=== PATIENT | female | born 1955 | race Hispanic/Latino ===

== ENCOUNTER 2020-02-21 11:19 | Inpatient (IN) | payer MEDICARE ==
[~2020-02-21] VITALS: Ht 152.4 cm; Wt 96.8 kg
[~2020-02-21 11:19] MED LIST: ALLO300T2 PO; AMLO10TA4 PO; AMOX1TAB16 PO; ASPI-1012 PO; ATOR10 PO; BACL10TA PO; BUDE10.2 IH; CARV6.25 PO; CILO100T PO; CLIN300C9 PO; ESOM40CA PO; FERS325 PO; FURO40TA5 PO; FURO40TA7 PO; HYDR-3422 PO; INSU100V12 SQ; IPRAHFA IH; ISOS20TA7 PO; LISI30TA4 PO; LORA1TAB3 PO; MONT10TA26 PO; NITR0.4T SL; OLAN5TAB40 PO; OMEP20CA12 PO; POTA10CA44 PO; PREG50 PO; SERT50TA12 PO; insulin
[2020-02-21 11:49] LABS: EOSINOPHILS % (AUTO) 3.5 % (0.0-8.0); HEMATOCRIT 35.9 % (36-48); LYMPHOCYTES % (AUTO) 13.8 % (21.0-51.0); MEAN CORPUSCULAR HGB CONC 29.5 g/dL (32.0-36.0); MEAN CORPUSCULAR VOLUME 91.6 fL (79-99); MONOCYTES % (AUTO) 6.8 % (3.0-13.0); NEUTROPHILS % (AUTO) 72.3 % (40.0-77.0); PLATELET COUNT (AUTO) 187 K/uL (130-400); RED BLOOD CELL COUNT(AUTO) 3.92 MIL/uL (4.00-5.50); RED CELL DISTRIBUTION WIDTH 12.5 % (11.0-15.5); WHITE BLOOD COUNT (AUTO) 9.5 K/uL (4.8-10.8)
[2020-02-21 12:05] LABS: CREATININE 2.1 mg/dL (0.5-1.5); POTASSIUM 4.8 mmol/L (3.5-5.1)
[2020-02-21 12:09] LABS: ALBUMIN 3.1 g/dL (3.5-5.0); BILIRUBIN,TOTAL 0.3 mg/dL (0.2-1.0); TOTAL PROTEIN, SERUM 7.1 g/dL (6.0-8.3)
[2020-02-21 13:40] LABS: INR 0.97 (0.85-1.15); PARTIAL THROMBOPLASTIN TIME 26.3 SEC (26.3-35.5); PROTHROMBIN TIME 10.5 SEC (9.6-11.6)
[2020-02-21] MEDS ORDERED: SODIUM CHLORIDE 0.9% 1000ML 1,000 ML IV ONE (14:04)
[2020-02-21 14:30] LABS: APPEARANCE,URINE Clear (CLEAR); BILIRUBIN,URINE Negative (NEGATIVE); COLOR,URINE Yellow (YELLOW); GLUCOSE, URINE (UA) Negative (NEGATIVE); KETONES,URINE Negative (NEGATIVE); LEUKOCYTE ESTERASE ,URINE Small (NEGATIVE); NITRATE,URINE Negative (NEGATIVE); OCCULT BLOOD,URINE Negative (NEGATIVE); PROTEIN,URINE Negative (NEGATIVE)
[2020-02-21 14:37] LABS: AMPHET/METH SCREEN,URINE NEGATIVE (NEGATIVE); BARBITURATE SCREEN, URINE NEGATIVE (NEGATIVE); BENZODIAZEPINES SCREEN,URINE NEGATIVE (NEGATIVE); CANNABINOID SCREEN,URINE NEGATIVE (NEGATIVE); COCAINE SCREEN,URINE NEGATIVE (NEGATIVE); OPIATE SCREEN,URINE NEGATIVE (NEGATIVE); PHENCYCLIDINE SCREEN,URINE NEGATIVE (NEGATIVE)
[2020-02-21] MEDS ORDERED: DEXTROSE 50%-WATER 50 ML DISP.SYRIN IV PRN (14:45)
[2020-02-21] MEDS: SODIUM CHLORIDE 0.9% 1000ML 1,000 ML IV SCH (14:45)
[2020-02-21] MEDS ORDERED: GLUCAGON 1MG KIT 1 MG ML IM PRN (14:45)
[2020-02-21 15:12] LABS: RBC,URINE 0-1 /HPF (0-1)
[2020-02-21 15:13] LABS: BACTERIA,URINE Rare /HPF (None Seen); SQUAMOUS EPITHELIAL CELL,UR Rare /HPF (0-2)
[2020-02-21] MEDS: INSULIN R PO SS1 SQ SCH ×2 (16:30→20:45)
[2020-02-21 19:49] VITALS: BP 109/70
[2020-02-22] VITALS (9 sets, daily range): BP systolic 85–136; BP diastolic 48–113
[2020-02-22] MEDS ORDERED: ESCI10TA54 PO (00:18)
[2020-02-22] MEDS ORDERED: ISOS30TA6 PO (00:18)
[2020-02-22] MEDS ORDERED: LEVO500T89 PO (00:18)
[2020-02-22 05:44] LABS: CREATININE 1.9 mg/dL (0.5-1.5); POTASSIUM 4.5 mmol/L (3.5-5.1)
[2020-02-22 05:48] LABS: HEMATOCRIT 35.5 % (36-48); MEAN CORPUSCULAR HEMOGLOBIN 27.3 pg (27.0-33.0); MEAN CORPUSCULAR HGB CONC 29.6 g/dL (32.0-36.0); MEAN CORPUSCULAR VOLUME 92.2 fL (79-99); RED BLOOD CELL COUNT(AUTO) 3.85 MIL/uL (4.00-5.50); RED CELL DISTRIBUTION WIDTH 12.4 % (11.0-15.5); WHITE BLOOD COUNT (AUTO) 9.7 K/uL (4.8-10.8)
[2020-02-22] MEDS: INSULIN R PO SS1 SQ SCH ×4 (06:12→20:42)
[2020-02-22] MEDS: SODIUM CHLORIDE 0.9% 1000ML 1,000 ML IV SCH ×2 (10:32→20:42)
[2020-02-22] MEDS: IPRATROPIUM/ALBUTEROL SULFATE 3 ML SOLUTION IH SCH ×3 (11:15→23:37)
[2020-02-22] MEDS ORDERED: IPRATROPIUM 0.5 MG/2.5 ML INH IH SCH (14:00)
[2020-02-22] MEDS: BUDESONIDE 0.5 MG/2 ML INH IH SCH (18:32)
[2020-02-22] MEDS: ATORVASTATIN CALCIUM 10 MG TABLET PO SCH (20:41)
[2020-02-22] MEDS: CARVEDILOL 6.25 MG TABLET PO SCH (20:42)
[2020-02-22] MEDS ORDERED: SUB PER P&T FOR ASTHMA OR COPD RECOMMENDATION IH SCH (21:00)
--- NOTE | 2020-02-22 21:15 | NUR ---
TELEPHONE CONSENT PATIENT HAS ORDER FOR EGD WITH PEG TUBE PLACEMENT TOMORROW. ATTEMPTED TO OBTAIN TELEPHONE CONSENT FROM DAUGHTER, ERIC YATES AT THIS TIME, NO ANSWER. WILL CALL AGAIN IN THE MORNING. Addendum: 02/22/20 at 2300 by JER BECKHAM RN RN DOCUMENTED ON WRONG PATIENT
--- NOTE | 2020-02-22 21:20 | NUR ---
TELEPHONE CONSENT OBTAINED RECEIVED CALL BACK FROM PATIENT'S DAUGHTER, ERIC YATES. CONSENT FOR EGD-PEG WITH MAC OBTAINED. Addendum: 02/22/20 at 2301 by JER BECKHAM RN RN DOCUMENTED ON WRONG PATIENT
--- NOTE | 2020-02-22 23:50 | NUR ---
PAGED MD DR. LONG WAS PAGED REGARDING PATIENT'S LOW O2 SATS. PENDING CALL BACK.
--- NOTE | 2020-02-23 00:14 | NUR ---
CALL BACK FROM DR. LONG RECEIVED CALL BACK FROM DR. LONG AND NOTIFIED HIM OF PATIENT'S DECREASE IN O2 SATS. PER MD CONTINUE WITH OXYGEN THERAPY AND DUONEB TREATMENTS. NO NEW ORDERS WERE GIVEN.
[2020-02-23 04:00] VITALS: BP 157/69
[2020-02-23 05:36] LABS: HEMATOCRIT 36.9 % (36-48); MEAN CORPUSCULAR HEMOGLOBIN 26.5 pg (27.0-33.0); MEAN CORPUSCULAR HGB CONC 29.3 g/dL (32.0-36.0); MEAN CORPUSCULAR VOLUME 90.7 fL (79-99); PLATELET COUNT (AUTO) 195 K/uL (130-400); RED BLOOD CELL COUNT(AUTO) 4.07 MIL/uL (4.00-5.50); RED CELL DISTRIBUTION WIDTH 12.6 % (11.0-15.5); WHITE BLOOD COUNT (AUTO) 10.3 K/uL (4.8-10.8)
[2020-02-23 05:55] LABS: CREATININE 1.5 mg/dL (0.5-1.5); PHOSPHORUS 2.4 mg/dL (2.5-4.9); POTASSIUM 4.2 mmol/L (3.5-5.1)
[2020-02-23] MEDS: SODIUM CHLORIDE 0.9% 1000ML 1,000 ML IV SCH (06:00)
[2020-02-23 06:19] LABS: BAND NEUTROPHILS % (MANUAL) 5 % (0-2); BASOPHILS % (MANUAL) 1 % (0-2); EOSINOPHILS % (MANUAL) 5 % (1-6); LYMPHOCYTES % (MANUAL) 11 % (22-44); MAN.DIFF COMMENT-IMPRESSION MANUAL DIFFERENTIAL; MONOCYTES % (MANUAL) 9 % (2-9); REACTIVE LYMPHOCYTES 2 % (0-0); SEGMENTED NEUTROPHILS % 67 % (40-70)
[2020-02-23 06:20] LABS: PLATELET MORPHOLOGY COMMENT ADEQUATE
[2020-02-23] MEDS: IPRATROPIUM/ALBUTEROL SULFATE 3 ML SOLUTION IH SCH ×3 (06:47→18:28)
[2020-02-23] MEDS: BUDESONIDE 0.5 MG/2 ML INH IH SCH ×2 (06:47→18:28)
[2020-02-23 07:00] VITALS: BP 133/81
[2020-02-23] MEDS: INSULIN R PO SS1 SQ SCH ×4 (07:21→20:35)
[2020-02-23] MEDS ORDERED: FUROSEMIDE 10 MG/ML 4ML VIAL IV SCH (07:45)
[2020-02-23 07:54] LABS: ABG BASE EXCESS 0.6 mmol/L (-2.0-3.0); ABG HCO3 29.6 mmol/L (21.0-28.0); ABG OXYGEN SATURATION 71.1 % (95.0-99.0); ABG PCO2 68 mmHg (32-45)
[2020-02-23 08:06] LABS: ABG BASE EXCESS 0.3 mmol/L (-2.0-3.0); ABG HCO3 29.3 mmol/L (21.0-28.0); ABG OXYGEN SATURATION 68.6 % (95.0-99.0); ABG PCO2 67 mmHg (32-45)
[2020-02-23] MEDS: CARVEDILOL 6.25 MG TABLET PO SCH ×2 (08:17→20:35)
[2020-02-23] MEDS: ASPIRIN 325 MG TABLET PO SCH (08:17)
[2020-02-23] MEDS: PANTOPRAZOLE SODIUM 40 MG TABLET.DR PO SCH (08:17)
[2020-02-23] MEDS ORDERED: NON-FORMULARY MEDICATION 1 EACH (Lisinopril 30 MG) PO SCH (09:00)
[2020-02-23] MEDS ORDERED: ISOSORBIDE MONO 30MG TAB SR PO SCH (09:00)
[2020-02-23] MEDS: FUROSEMIDE 10 MG/ML 4ML VIAL IV SCH ×2 (09:30→20:35)
--- NOTE | 2020-02-23 10:40 | NUR ---
Responded to audible BiPAP alarm. Pt was off the bipap upon entering room. Pt removed mask on her own. RA SpO2 65% HR 70's RR 30s, Respirations labored. Bipap immediately placed back on pt w/FiO2 @ 1.0 to rapidly increase sats. Pt was encouraged to not remove mask as she would be w/o oxygen. FiO2 weaned to .50 before leaving room; SpO2 91%. Pauline RN made aware.
[2020-02-23 11:00] VITALS: BP 128/79
--- NOTE | 2020-02-23 12:01 | NUR ---
PAGED DR. BLOUNT FOR SURGICAL CONSULT. DR. BLOUNT SAID UNABLE TO DO D/T FULL CLINIC TODAY AND UNABLE TO SEE.
--- NOTE | 2020-02-23 15:24 | NUR ---
INITIAL ASSESSMENT DONE- CALL TO DAUGHTER KAROL ZAMAN, PROVIDER FOR PATIENT 6 HR/DAY. GRANDDAUGHTER GERARDO STAYS/LIVES WITH PATIENT, BUT DOES NOT WORK FOR PATIENT. PATIENT HAS LIFT, WHEEL CHAIR, NEBULIZER, HOSP BED AND HOME OXYGEN. PATIENT GOES BY EMS TO ALL APPOINTMENTS, WILL NEED EMS ON DISCHARGE. WILL FLAG CHART, DCP IS HOME WITH SAME SERVICES Addendum: 02/23/20 at 1526 by DIANE RODRIGUES RN CM Amended: Links added.
--- NOTE | 2020-02-23 15:27 | NUR ---
WILL NEED EMS ON DISCHARGE HOME EVERARDO TO COORDINATE W WHEN DISCHARGE EXPECTED Addendum: 02/23/20 at 1527 by DIANE RODRIGUES RN CM Amended: Links added.
--- NOTE | 2020-02-23 16:12 | NUR ---
1608 BPCI Letter given to patient.
[2020-02-23 16:53] VITALS: BP 147/70
[2020-02-23] MEDS ORDERED: BUDESONIDE 0.5 MG/2 ML INH IH ONE (18:24)
[2020-02-23] MEDS ORDERED: IPRATROPIUM/ALBUTEROL SULFATE 3 ML SOLUTION IH ONE (18:24)
[2020-02-23 19:00] VITALS: BP 135/74
--- NOTE | 2020-02-23 19:00 | NUR ---
NURSES REPORT RECEIVED FROM AM NURSE MARY, NURSES ROUNDS DONE. PT NOTED TO BE HAVING SOB EVEN ON THE BIPAP. O2 SAT=90-94 % AT THIS TIME. KEPT HOB ELEVATED. WILL MONITOR CLOSELY. CALL LIGHT WITHIN REACH. Addendum: 02/23/20 at 2101 by NATACHA HOGUE RN RN Amended: Links added.
[2020-02-23] MEDS: ATORVASTATIN CALCIUM 10 MG TABLET PO SCH (20:35)
--- NOTE | 2020-02-23 20:35 | NUR ---
MEDS SHIFT ASSESSMENT DONE, PLEASE REFER TO CHART. RE-POSITIONED IN BED WITH HOB ELEVATED. DUE MEDS ADMINISTERED, TOLERATED WELL. CALL LIGHT WITHIN REACH. WILL MONITOR PT. Addendum: 02/23/20 at 2110 by NATACHA HOGUE RN RN Amended: Links added.
--- NOTE | 2020-02-23 21:56 | NUR ---
CX RESULTS PAGED DR ETHAN MD CREDIT COLLECTIONS SPECIALIST FOR THE NIGHT, VIA ANSWERING SERVICE, TO REFER + CX RESULTS. CALLED BACK AND REFERRED CX RESULTS. STATED THAT HE IS NOT FAMILIAR WITH THE PT'S CASE AND LONG THE PT IS NOT CRASHING OR HAVING FEVER, NURSE IS TO REFER RESULTS TO DR CODY JOHNSON ON AM ROUNDS.
[2020-02-23 23:00] VITALS: BP 154/71
--- NOTE | 2020-02-24 02:00 | NUR ---
CHANGED BANKING SERVICES CLERK AND PCP IN AND CHANGED PT'S DIAPER AND WET LINEN. NOTED PT DESATS VERY FAST TO THE 80'S IF BIPAP IS DISCONNECTED. RE-POSITIONED COMFORTABLY IN BED WITH HOB ELEVATED. CALL LIGHT WITHIN REACH. WILL MONITOR CLOSELY.
[2020-02-24 03:00] VITALS: BP 142/61
--- NOTE | 2020-02-24 04:55 | NUR ---
DESATS PT STILL DESATURATE ONCE BIPAP IS TAKEN OFF. SLEPT AT INTERVALS. KEPT COMFORTABLE WITH HOB ELEVATED. FOR MORE CARE.
[2020-02-24 05:22] LABS: BASOPHILS % (AUTO) 0.6 % (0.0-5.0); EOSINOPHILS % (AUTO) 1.8 % (0.0-8.0); HEMATOCRIT 35.3 % (36-48); MEAN CORPUSCULAR HEMOGLOBIN 27.3 pg (27.0-33.0); MEAN CORPUSCULAR HGB CONC 31.2 g/dL (32.0-36.0); MEAN CORPUSCULAR VOLUME 87.6 fL (79-99); MONOCYTES % (AUTO) 7.5 % (3.0-13.0); NEUTROPHILS % (AUTO) 76.1 % (40.0-77.0); PLATELET COUNT (AUTO) 178 K/uL (130-400); RED BLOOD CELL COUNT(AUTO) 4.03 MIL/uL (4.00-5.50); RED CELL DISTRIBUTION WIDTH 12.7 % (11.0-15.5); WHITE BLOOD COUNT (AUTO) 12.5 K/uL (4.8-10.8)
[2020-02-24 05:29] LABS: CREATININE 1.3 mg/dL (0.5-1.5); PHOSPHORUS 2.5 mg/dL (2.5-4.9); POTASSIUM 3.7 mmol/L (3.5-5.1)
[2020-02-24] MEDS: INSULIN R PO SS1 SQ SCH ×4 (06:06→21:00)
[2020-02-24] MEDS: PANTOPRAZOLE SODIUM 40 MG TABLET.DR PO SCH (06:14)
[2020-02-24] MEDS ORDERED: IPRATROPIUM/ALBUTEROL SULFATE 3 ML SOLUTION IH ONE ×2 (06:41→11:05)
[2020-02-24] MEDS ORDERED: BUDESONIDE 0.5 MG/2 ML INH IH ONE (06:41)
[2020-02-24] MEDS: IPRATROPIUM/ALBUTEROL SULFATE 3 ML SOLUTION IH SCH ×5 (06:43→23:27)
[2020-02-24] MEDS: BUDESONIDE 0.5 MG/2 ML INH IH SCH ×2 (06:55→18:18)
[2020-02-24 07:20] VITALS: BP 136/65
[2020-02-24] MEDS: ASPIRIN 325 MG TABLET PO SCH (09:31)
[2020-02-24] MEDS: FUROSEMIDE 10 MG/ML 4ML VIAL IV SCH ×2 (09:32→21:12)
[2020-02-24] MEDS: CARVEDILOL 6.25 MG TABLET PO SCH ×2 (09:32→21:14)
[2020-02-24 10:30] VITALS: BP 143/69
[2020-02-24] MEDS: AMPICILLIN 1GM+NS 50ML 50 ML IV SCH ×2 (12:00→14:05)
[2020-02-24] MEDS ORDERED: PHARMACY COMMUNICATION MISC SCH (13:00)
[2020-02-24 15:07] VITALS: BP 136/69
--- NOTE | 2020-02-24 15:50 | NUR ---
REFUSED BLOOD SUGAR CHECK AND REFUSED TO HAVE CONTINUOUS PULSE OXIMETRY IN PLACE. EXPLAINED RATIONALE,COMPLICATIONS, RISKS AND EVEN ASSOCIATED WITH NONCOMPLIANCE. PATIENT REFUSED. PT REFUSED TO SIGN REFUSAL OF TREATMENT. CHEL GUERRA AND RADU MILLIGAN PRESENT. SIGNED REFUSAL OF TREATMENT WITH WITNESS D/T PT REFUSING TO SIGN.
[2020-02-24] MEDS: ATORVASTATIN CALCIUM 10 MG TABLET PO SCH (21:12)
[2020-02-24 21:24] VITALS: BP 143/72
[2020-02-25 00:06] VITALS: BP_SYST 114; BP_DIAS 51; BP_DIAS 57
[2020-02-25] MEDS: AMPICILLIN 1GM+NS 50ML 50 ML IV SCH ×4 (00:35→18:28)
[2020-02-25] MEDS: INSULIN R PO SS1 SQ SCH ×4 (05:32→22:53)
[2020-02-25] MEDS: PANTOPRAZOLE SODIUM 40 MG TABLET.DR PO SCH ×2 (05:55→08:28)
[2020-02-25 06:07] VITALS: BP 143/62
[2020-02-25] MEDS: BUDESONIDE 0.5 MG/2 ML INH IH SCH (06:39)
[2020-02-25] MEDS: IPRATROPIUM/ALBUTEROL SULFATE 3 ML SOLUTION IH SCH ×3 (06:39→18:00)
--- NOTE | 2020-02-25 06:54 | NUR ---
pt on BiPap HS and throughout the day. As per Nurse pt will come off Bipap for meals. Addendum: 02/25/20 at 0656 by LEYLA AG RT Amended: Links added.
[2020-02-25 07:24] VITALS: BP 123/60
[2020-02-25] MEDS: ASPIRIN 325 MG TABLET PO SCH (08:28)
[2020-02-25] MEDS: CARVEDILOL 6.25 MG TABLET PO SCH ×2 (08:29→21:25)
[2020-02-25] MEDS: FUROSEMIDE 10 MG/ML 4ML VIAL IV SCH ×2 (08:29→21:24)
[2020-02-25] MEDS: LACTULOSE 20 GM/30 ML UDCUP PO PRN ×2 (09:29→16:28)
[2020-02-25 10:28] VITALS: BP 150/85
[2020-02-25 12:47] LABS: ABG BASE EXCESS 7.2 mmol/L (-2.0-3.0); ABG HCO3 35.3 mmol/L (21.0-28.0); ABG OXYGEN SATURATION 92.9 % (95.0-99.0); ABG PCO2 70 mmHg (32-45)
[2020-02-25 15:30] VITALS: BP 142/64
[2020-02-25 16:26] LABS: BASOPHILS % (AUTO) 0.4 % (0.0-5.0); EOSINOPHILS % (AUTO) 3.3 % (0.0-8.0); HEMATOCRIT 33.9 % (36-48); LYMPHOCYTES % (AUTO) 14.3 % (21.0-51.0); MEAN CORPUSCULAR HEMOGLOBIN 27.3 pg (27.0-33.0); MEAN CORPUSCULAR HGB CONC 30.7 g/dL (32.0-36.0); MONOCYTES % (AUTO) 8.2 % (3.0-13.0); NEUTROPHILS % (AUTO) 72.9 % (40.0-77.0); PLATELET COUNT (AUTO) 181 K/uL (130-400); RED BLOOD CELL COUNT(AUTO) 3.81 MIL/uL (4.00-5.50); WHITE BLOOD COUNT (AUTO) 10.8 K/uL (4.8-10.8)
[2020-02-25 17:06] LABS: CRP QUANTITATIVE 218.1 mg/L (0.00-9.0)
[2020-02-25] MEDS: BUDESONIDE 0.25 MG/2 ML INH IH SCH (18:00)
[2020-02-25] MEDS ORDERED: SODIUM CHLORIDE 0.9% 250 ML IV ONE (18:34)
[2020-02-25] MEDS ORDERED: PHARMACY COMMUNICATION MISC SCH (19:00)
[2020-02-25 20:00] VITALS: BP 149/71
[2020-02-25] MEDS: METHYLPREDNISOLONE SOD SUCC 125MG/2ML VIAL IVP SCH (21:24)
[2020-02-25] MEDS: ATORVASTATIN CALCIUM 10 MG TABLET PO SCH (21:24)
[2020-02-26] VITALS (7 sets, daily range): BP systolic 135–155; BP diastolic 69–114
[2020-02-26] MEDS ORDERED: IPRATROPIUM 0.5 MG/2.5 ML INH IH SCH
[2020-02-26] MEDS ORDERED: ALBUTEROL INHALER 90MCG/INH IH SCH
--- NOTE | 2020-02-26 | NUR ---
PT IS COVID NEGATIVE. VAN DRIVER HELPER AWARE. HIGH FLOW AT 80%. BASELINE O2 IS 84-89%. STATES SHE FEELS FINE, ONLY MINIMAL SOB WHEN SHE MOVES TOO FAST. BM NOTED. LARGE.
[2020-02-26] MEDS: AMPICILLIN 1GM+NS 50ML 50 ML IV SCH ×5 (02:26→23:43)
[2020-02-26] MEDS: INSULIN R PO SS1 SQ SCH ×4 (06:26→20:54)
[2020-02-26] MEDS: IPRATROPIUM 0.5 MG/2.5 ML INH IH SCH ×4 (06:55→23:53)
[2020-02-26] MEDS: BUDESONIDE 0.25 MG/2 ML INH IH SCH ×2 (06:55→19:48)
[2020-02-26] MEDS: ASPIRIN 325 MG TABLET PO SCH (07:54)
[2020-02-26] MEDS: METHYLPREDNISOLONE SOD SUCC 125MG/2ML VIAL IVP SCH (07:54)
[2020-02-26] MEDS: CARVEDILOL 6.25 MG TABLET PO SCH ×2 (07:55→20:41)
[2020-02-26] MEDS: FUROSEMIDE 10 MG/ML 4ML VIAL IV SCH ×2 (07:59→20:41)
--- NOTE | 2020-02-26 08:38 | NUR ---
DR. JOHNSON IS MAKING HIS ROUNDS. INFORMED MD OF NEGATIVE COVID TEST. PER MD, WE WILL WAIT ON PULMO RECOMMENDATIONS.
[2020-02-26] MEDS ORDERED: LEVOFLOXACIN 750 MG/D5W 150 ML 150 ML IV SCH (10:45)
[2020-02-26] MEDS: LEVOFLOXACIN 750 MG/D5W 150 ML 150 ML IV SCH (11:34)
[2020-02-26] MEDS ORDERED: DOXYCYCLINE 100MG+NS 250ML 250 ML IV SCH (15:30)
[2020-02-26] MEDS: DOXYCYCLINE HYCLATE 100 MG TABLET PO SCH (16:38)
--- NOTE | 2020-02-26 19:50 | NUR ---
PM Assessment Received pt sleepy on high flow O2 at 50% as reported by Raman ARREDONDO, on continuous O2 sat monitoring currently reading at 87-89%, pt denies SOB, pain, requested to have a sip of water. Pt head attempt to prop on a pillow as noted she sleep with head hyperextended agreed for few minutes & noted to take off the extra pillow. Explained the importance of good head position in terms of breathing, pt stated she is comfortable the was she sleeps.
[2020-02-26] MEDS: ATORVASTATIN CALCIUM 10 MG TABLET PO SCH (20:40)
[2020-02-26] MEDS: METHYLPREDNISOLONE SOD SUCC 40MG/ML 1ML IVP SCH (20:41)
--- NOTE | 2020-02-26 21:00 | NUR ---
Re: O2 sat reading 84-86 Rt Raman made aware of O2 sat reading, stated that he already had noted it & had increased O2 back to 60%. Per Raman he is trying to see if he can taper down the O2, will continue to monitor.
--- NOTE | 2020-02-27 01:00 | NUR ---
Re: continuous on/off desaturation Per Raman RT pt will be better off to be place on BIPAP as we have a PRN order, applied at 14/7 rate 16 at 45%, O2 sat noted up to 90-94%.
[2020-02-27 04:00] VITALS: BP 133/70
[2020-02-27] MEDS: DOXYCYCLINE HYCLATE 100 MG TABLET PO SCH ×2 (04:09→17:01)
[2020-02-27 04:44] LABS: HEMATOCRIT 32.7 % (36-48); MEAN CORPUSCULAR HEMOGLOBIN 27.3 pg (27.0-33.0); MEAN CORPUSCULAR HGB CONC 31.8 g/dL (32.0-36.0); MEAN CORPUSCULAR VOLUME 85.8 fL (79-99); RED BLOOD CELL COUNT(AUTO) 3.81 MIL/uL (4.00-5.50); RED CELL DISTRIBUTION WIDTH 12.4 % (11.0-15.5); WHITE BLOOD COUNT (AUTO) 4.5 K/uL (4.8-10.8)
[2020-02-27 04:56] LABS: CREATININE 1.3 mg/dL (0.5-1.5); POTASSIUM 3.6 mmol/L (3.5-5.1)
[2020-02-27] MEDS: AMPICILLIN 1GM+NS 50ML 50 ML IV SCH ×4 (05:31→23:45)
[2020-02-27] MEDS ORDERED: IPRATROPIUM 0.5 MG/2.5 ML INH IH ONE (06:13)
[2020-02-27] MEDS ORDERED: BUDESONIDE 0.5 MG/2 ML INH IH ONE (06:13)
[2020-02-27] MEDS: IPRATROPIUM 0.5 MG/2.5 ML INH IH SCH ×3 (06:16→18:34)
[2020-02-27] MEDS: BUDESONIDE 0.25 MG/2 ML INH IH SCH ×2 (06:28→18:42)
[2020-02-27] MEDS: PANTOPRAZOLE SODIUM 40 MG TABLET.DR PO SCH (06:49)
[2020-02-27] MEDS: INSULIN R PO SS1 SQ SCH ×3 (06:55→17:02)
[2020-02-27 08:00] VITALS: BP 148/60
[2020-02-27] MEDS: METHYLPREDNISOLONE SOD SUCC 40MG/ML 1ML IVP SCH ×2 (11:15→20:23)
[2020-02-27] MEDS: FUROSEMIDE 10 MG/ML 4ML VIAL IV SCH ×2 (11:15→20:24)
[2020-02-27 11:16] VITALS: BP 123/66
[2020-02-27] MEDS: CARVEDILOL 6.25 MG TABLET PO SCH ×2 (11:16→20:24)
[2020-02-27] MEDS: ASPIRIN 325 MG TABLET PO SCH (11:16)
[2020-02-27 16:00] VITALS: BP 134/74
[2020-02-27 20:11] VITALS: BP 136/76
[2020-02-27] MEDS: ATORVASTATIN CALCIUM 10 MG TABLET PO SCH (20:24)
[2020-02-27] MEDS: INSULIN HUMULIN R 100 UNIT/ML 3ML SQ SCH (20:37)
[2020-02-27 23:42] VITALS: BP 155/74
[2020-02-28] MEDS: IPRATROPIUM 0.5 MG/2.5 ML INH IH SCH ×4 (00:03→18:40)
[2020-02-28 03:38] VITALS: BP 157/84
[2020-02-28 05:07] LABS: HEMATOCRIT 34.2 % (36-48); MEAN CORPUSCULAR HEMOGLOBIN 26.5 pg (27.0-33.0); MEAN CORPUSCULAR HGB CONC 31.3 g/dL (32.0-36.0); MEAN CORPUSCULAR VOLUME 84.7 fL (79-99); RED BLOOD CELL COUNT(AUTO) 4.04 MIL/uL (4.00-5.50); RED CELL DISTRIBUTION WIDTH 12.3 % (11.0-15.5); WHITE BLOOD COUNT (AUTO) 7.2 K/uL (4.8-10.8)
[2020-02-28 05:22] LABS: % IRON SATURATION 30.5 % (22-44)
[2020-02-28 05:29] LABS: CREATININE 1.5 mg/dL (0.5-1.5); MAGNESIUM 1.6 mg/dL (1.80-2.40); PHOSPHORUS 2.4 mg/dL (2.5-4.9); POTASSIUM 3.1 mmol/L (3.5-5.1)
[2020-02-28] MEDS: BUDESONIDE 0.25 MG/2 ML INH IH SCH ×2 (06:07→18:57)
[2020-02-28] MEDS: PANTOPRAZOLE SODIUM 40 MG TABLET.DR PO SCH (06:37)
[2020-02-28] MEDS: AMPICILLIN 1GM+NS 50ML 50 ML IV SCH ×3 (06:37→18:39)
[2020-02-28] MEDS: DOXYCYCLINE HYCLATE 100 MG TABLET PO SCH ×2 (06:37→18:39)
[2020-02-28] MEDS: INSULIN HUMULIN R 100 UNIT/ML 3ML SQ SCH ×4 (06:44→20:47)
[2020-02-28 08:28] VITALS: BP 161/74
[2020-02-28] MEDS: ASPIRIN 325 MG TABLET PO SCH (10:54)
[2020-02-28] MEDS: CARVEDILOL 6.25 MG TABLET PO SCH ×2 (10:55→20:24)
[2020-02-28] MEDS: FUROSEMIDE 10 MG/ML 4ML VIAL IV SCH ×2 (10:55→20:24)
[2020-02-28] MEDS: METHYLPREDNISOLONE SOD SUCC 40MG/ML 1ML IVP SCH ×2 (10:55→20:24)
[2020-02-28] MEDS: LEVOFLOXACIN 750 MG/D5W 150 ML 150 ML IV SCH (10:56)
[2020-02-28] MEDS ORDERED: IPRATROPIUM 0.5 MG/2.5 ML INH IH ONE (11:02)
[2020-02-28 12:00] VITALS: BP 158/77
[2020-02-28] MEDS ORDERED: LIDOCAINE HCL-MPF 1% 2ML VIAL IV PRN (16:00)
[2020-02-28] MEDS ORDERED: POTASSIUM CHLORIDE 20MEQ/100ML 100 ML IV PRN (16:00)
[2020-02-28] MEDS ORDERED: MAGNESIUM 2GM PREMIX 50ML 50 ML IV SCH (16:00)
[2020-02-28] MEDS ORDERED: POTASSIUM CHLORIDE 10% ELIXIR 20 MEQ/15 ML UDCUP PO PRN (16:00)
[2020-02-28 17:11] VITALS: BP 155/93
--- NOTE | 2020-02-28 18:08 | NUR ---
CM NOTE CM spoke to pt regarding d/c planning. CM explained MD orders for [facility]. Member declined. States she has home o2 and other DME. Reports she has assistance 08/04. CM explained home health or [facility] options. CM updated Dr. Kyle and explained patient has declined placement. CM to f/u.
[2020-02-28 19:00] VITALS: BP 170/73
[2020-02-28] MEDS: POTASSIUM CHLORIDE 20 MEQ ERTAB PO PRN ×2 (20:23→22:06)
[2020-02-28] MEDS: ATORVASTATIN CALCIUM 10 MG TABLET PO SCH (20:25)
[2020-02-28] MEDS ORDERED: SODIUM CHLORIDE 0.9% 250 ML IV ONE (20:38)
[2020-02-28] MEDS: INSULIN HUMULIN 70/30 100 UNIT/ML 3ML SQ SCH (20:48)
[2020-02-28 23:00] VITALS: BP_SYST 155; BP_SYST 178; BP_DIAS 70; BP_DIAS 79
[2020-02-29] MEDS: POTASSIUM CHLORIDE 20 MEQ ERTAB PO PRN ×2 (00:04→06:10)
[2020-02-29] MEDS: AMPICILLIN 1GM+NS 50ML 50 ML IV SCH ×4 (00:04→18:11)
[2020-02-29] MEDS: IPRATROPIUM 0.5 MG/2.5 ML INH IH SCH ×5 (00:30→23:24)
[2020-02-29 03:00] VITALS: BP 149/74
[2020-02-29] MEDS: LACTULOSE 20 GM/30 ML UDCUP PO PRN (05:01)
[2020-02-29] MEDS: DOXYCYCLINE HYCLATE 100 MG TABLET PO SCH ×2 (05:01→17:47)
[2020-02-29 05:08] LABS: HEMATOCRIT 36.3 % (36-48); MEAN CORPUSCULAR HGB CONC 32.2 g/dL (32.0-36.0); MEAN CORPUSCULAR VOLUME 83.6 fL (79-99); RED BLOOD CELL COUNT(AUTO) 4.34 MIL/uL (4.00-5.50); RED CELL DISTRIBUTION WIDTH 12.1 % (11.0-15.5); WHITE BLOOD COUNT (AUTO) 7.3 K/uL (4.8-10.8)
[2020-02-29] MEDS: INSULIN HUMULIN R 100 UNIT/ML 3ML SQ SCH ×4 (05:08→20:57)
[2020-02-29 05:27] LABS: CREATININE 1.5 mg/dL (0.5-1.5); MAGNESIUM 2.3 mg/dL (1.80-2.40); POTASSIUM 3.6 mmol/L (3.5-5.1)
[2020-02-29] MEDS: PANTOPRAZOLE SODIUM 40 MG TABLET.DR PO SCH (06:06)
[2020-02-29] MEDS: BUDESONIDE 0.25 MG/2 ML INH IH SCH ×2 (06:13→18:45)
[2020-02-29 07:30] VITALS: BP 173/94
[2020-02-29] MEDS: INSULIN HUMULIN 70/30 100 UNIT/ML 3ML SQ SCH ×2 (08:45→17:48)
[2020-02-29] MEDS: ASPIRIN 325 MG TABLET PO SCH (08:47)
[2020-02-29] MEDS: CARVEDILOL 6.25 MG TABLET PO SCH ×2 (08:48→20:44)
[2020-02-29] MEDS: METHYLPREDNISOLONE SOD SUCC 40MG/ML 1ML IVP SCH (08:49)
[2020-02-29] MEDS: FUROSEMIDE 10 MG/ML 4ML VIAL IV SCH ×2 (08:50→20:43)
--- NOTE | 2020-02-29 11:28 | NUR ---
Spoke to daughter Frida re placement, CPAP Family and patient have declined placement. Quinn was suggested- I discussed placement again with family, and was declined Will be an EMS transport home Dr. Rosendo Wong gave an order this morning for CPAP set up, Call to daughter Frida, Patient sleep study done/CPAP prescribed (>5yrs) when she was under Medicaid [facility] in [place]. Lost her machine recently. Frida will try to get the records/ info. This CM advised daughter that with the orginal sleep study report /order and new RX, will be able to get replacement without new sleep study Addendum: 02/29/20 at 1132 by DIANE RODRIGUES RN Amended: Links added.
--- NOTE | 2020-02-29 11:46 | NUR ---
DAUGHTER KAROL called back re medical records/CPAP States made a call made to [place] [facility], which the patient was under when her sleep study was done and cpap first prescribed. Karol states the rep she spoke to told her the sleep study 'was too long ago and she will need another one', so that ended request for records. This Cm asked Karol please speak to patient again about placement- [facility]. Daughter will have family meeting and then speak to patient
[2020-02-29] MEDS: HYDRALAZINE HCL 20 MG/ML VIAL IV PRN ×2 (12:17→18:35)
[2020-02-29] MEDS ORDERED: SODIUM CHLORIDE 0.9% 250 ML IV ONE (18:14)
[2020-02-29 19:43] VITALS: BP 136/74
[2020-02-29] MEDS: ATORVASTATIN CALCIUM 10 MG TABLET PO SCH (20:44)
[2020-03-01] VITALS (7 sets, daily range): BP systolic 118–169; BP diastolic 54–88
[2020-03-01 04:37] LABS: HEMATOCRIT 37.5 % (36-48); MEAN CORPUSCULAR HEMOGLOBIN 26.7 pg (27.0-33.0); MEAN CORPUSCULAR HGB CONC 31.2 g/dL (32.0-36.0); MEAN CORPUSCULAR VOLUME 85.6 fL (79-99); RED BLOOD CELL COUNT(AUTO) 4.38 MIL/uL (4.00-5.50); RED CELL DISTRIBUTION WIDTH 12.8 % (11.0-15.5); WHITE BLOOD COUNT (AUTO) 9.4 K/uL (4.8-10.8)
[2020-03-01 04:53] LABS: CREATININE 1.5 mg/dL (0.5-1.5); POTASSIUM 3.4 mmol/L (3.5-5.1)
[2020-03-01] MEDS: DOXYCYCLINE HYCLATE 100 MG TABLET PO SCH ×2 (05:01→18:19)
[2020-03-01] MEDS: POTASSIUM CHLORIDE 20 MEQ ERTAB PO PRN ×2 (05:11→08:53)
[2020-03-01] MEDS: IPRATROPIUM 0.5 MG/2.5 ML INH IH SCH ×4 (06:12→23:35)
[2020-03-01] MEDS: BUDESONIDE 0.25 MG/2 ML INH IH SCH ×2 (06:12→18:05)
[2020-03-01] MEDS: AMPICILLIN 1GM+NS 50ML 50 ML IV SCH ×5 (06:18→23:31)
[2020-03-01] MEDS: INSULIN HUMULIN R 100 UNIT/ML 3ML SQ SCH ×4 (06:19→20:46)
[2020-03-01] MEDS: METHYLPREDNISOLONE SOD SUCC 40MG/ML 1ML IVP SCH ×3 (08:50→23:31)
[2020-03-01] MEDS: CARVEDILOL 6.25 MG TABLET PO SCH ×2 (08:51→20:27)
[2020-03-01] MEDS: PANTOPRAZOLE SODIUM 40 MG TABLET.DR PO SCH (08:51)
[2020-03-01] MEDS: FUROSEMIDE 10 MG/ML 4ML VIAL IV SCH ×2 (08:51→20:28)
[2020-03-01] MEDS: ASPIRIN 325 MG TABLET PO SCH (08:51)
[2020-03-01] MEDS: INSULIN HUMULIN 70/30 100 UNIT/ML 3ML SQ SCH ×2 (08:52→18:30)
[2020-03-01] MEDS: LEVOFLOXACIN 750 MG/D5W 150 ML 150 ML IV SCH (11:43)
--- NOTE | 2020-03-01 12:51 | NUR ---
TRANSFERRED TO ROOM 309 AAOX3. PT NOTIFIED PRIOR TO TRANSFER, VERBALIZED UNDERSTANDING. RESP EVEN, UNLABORED WITH O2 HIFLOW MASK ACCOMPANIED BY NURSE, CHEL WALSH AND RTJOY. REPORT WAS GIVEN TO BERNARD PANDYA PRIOR TO TRANSFER, VERBALIZED UNDERSTANDING. CALLED AND NOTIFIED KG, DAUGHTER OF PT TRANSFER TO ROOM 309, VERBALIZED UNDERSTANDING.
--- NOTE | 2020-03-01 15:04 | NUR ---
RDSCREEN - LOS X 9 Pt admitted with Renal Failure. Pt with Heart Healthy, 75gm CC diet order in place. No report of GI distress. PO intake at 100%. Pt with morbid obesity (BMI 41.6). Cr level at 1.5. Recommend Nepro QD. Recommend continue diet order. RD to continue to monitor. Please notify as additional nutrition concerns arise. Thank you. Addendum: 03/01/20 at [address] Amended: Links added.
--- NOTE | 2020-03-01 18:51 | NUR ---
DC PLAN SPOKE TO DAUGHTER THIS MORNING SAID THAT PATIENT HAS CHANGED MIND IS NOW OKAY WITH GOING TO LT[facility]. ORDER RECEIVED FROM DR. JOHNSON THIS MORNING. MOT AND COVID FORMS FLAGGED IN CHART. EMS PENDING. BPCI GIVEN. GIACOMO CALLED SAID DR. JOHNSON WILL TAKE PATIENT AT [facility]. PATIENT MOVED TO 309. LET DIANE KNOW ABOUT ACCEPTANCE. MOT INFO GIVEN. PATIENT ACCEPTED TO [facility] 03/01. Addendum: 03/01/20 at 1855 by KATIE SIGALA RN CM Amended: Links added.
[2020-03-01] MEDS: ATORVASTATIN CALCIUM 10 MG TABLET PO SCH (20:27)
[2020-03-01] MEDS: ENOXAPARIN SODIUM 30 MG/0.3 ML SQ SCH (20:29)
[2020-03-01] MEDS: HYDRALAZINE HCL 20 MG/ML VIAL IV PRN (23:31)
[2020-03-02 00:24] VITALS: BP 151/68
[2020-03-02 03:05] VITALS: BP 141/108
[2020-03-02] MEDS: AMPICILLIN 1GM+NS 50ML 50 ML IV SCH (04:02)
[2020-03-02] MEDS: DOXYCYCLINE HYCLATE 100 MG TABLET PO SCH (04:02)
[2020-03-02] MEDS: PANTOPRAZOLE SODIUM 40 MG TABLET.DR PO SCH (05:41)
[2020-03-02] MEDS: INSULIN HUMULIN 70/30 100 UNIT/ML 3ML SQ SCH ×2 (05:41→17:58)
[2020-03-02] MEDS: INSULIN HUMULIN R 100 UNIT/ML 3ML SQ SCH ×3 (05:55→16:32)
[2020-03-02 06:12] LABS: BASOPHILS % (AUTO) 0.7 % (0.0-5.0); HEMATOCRIT 40.6 % (36-48); LYMPHOCYTES % (AUTO) 11.2 % (21.0-51.0); MEAN CORPUSCULAR HEMOGLOBIN 26.7 pg (27.0-33.0); MEAN CORPUSCULAR VOLUME 83.5 fL (79-99); MONOCYTES % (AUTO) 2.5 % (3.0-13.0); NEUTROPHILS % (AUTO) 81.6 % (40.0-77.0); PLATELET COUNT (AUTO) 324 K/uL (130-400); RED BLOOD CELL COUNT(AUTO) 4.86 MIL/uL (4.00-5.50); RED CELL DISTRIBUTION WIDTH 12.9 % (11.0-15.5); WHITE BLOOD COUNT (AUTO) 7.5 K/uL (4.8-10.8)
[2020-03-02 06:32] LABS: BILIRUBIN,TOTAL 0.6 mg/dL (0.2-1.0); CREATININE 1.7 mg/dL (0.5-1.5); POTASSIUM 4.2 mmol/L (3.5-5.1); TOTAL PROTEIN, SERUM 7.4 g/dL (6.0-8.3)
[2020-03-02 07:05] LABS: B-TYPE NATRIURETIC PEPTIDE 18 pg/mL (0-100)
[2020-03-02] MEDS: BUDESONIDE 0.25 MG/2 ML INH IH SCH ×2 (07:17→17:23)
[2020-03-02] MEDS: IPRATROPIUM 0.5 MG/2.5 ML INH IH SCH ×3 (07:17→17:23)
[2020-03-02 07:45] LABS: ABG BASE EXCESS 6.1 mmol/L (-2.0-3.0); ABG HCO3 29.6 mmol/L (21.0-28.0); ABG OXYGEN SATURATION 93.4 % (95.0-99.0); ABG PCO2 39 mmHg (32-45)
[2020-03-02 08:00] VITALS: BP 164/103
[2020-03-02] MEDS: ENOXAPARIN SODIUM 30 MG/0.3 ML SQ SCH (09:16)
[2020-03-02] MEDS: FUROSEMIDE 10 MG/ML 4ML VIAL IV SCH (09:16)
[2020-03-02] MEDS: METHYLPREDNISOLONE SOD SUCC 40MG/ML 1ML IVP SCH ×2 (09:17→17:47)
[2020-03-02] MEDS: HYDRALAZINE HCL 20 MG/ML VIAL IV PRN ×2 (09:18→16:29)
[2020-03-02] MEDS: CARVEDILOL 6.25 MG TABLET PO SCH (09:25)
[2020-03-02] MEDS: ASPIRIN 325 MG TABLET PO SCH (09:25)
[2020-03-02 11:00] VITALS: BP 152/69
--- NOTE | 2020-03-02 12:27 | NUR ---
IR PT WENT DOWN TO IR FOR VQSCAN, WHEN SHE GOT THERE SHE REFUSED TO GET ON TABLE STATED, SHE CAN'T LAY FLAT. PT RETURNING BACK TO HER ROOM. WILL CALL MD TO MAKE HIM AWARE.
[2020-03-02] MEDS ORDERED: AZITHROMYCIN 500MG+NS 250ML 250 ML IV SCH (15:45)
[2020-03-02] MEDS ORDERED: MEROPENEM 1 GM VIAL IVP SCH (16:03)
[2020-03-02 16:22] VITALS: BP 180/80
--- NOTE | 2020-03-02 16:30 | NUR ---
MED REC/COVID COMPLETED CONFIRMED Ngoc EVANS AND SENT BY GIACOMO Addendum: 03/02/20 at 1744 by DIANE RODRIGUES RN CM Amended: Links added.
--- NOTE | 2020-03-02 16:30 | NUR ---
DISPO TO [facility]IA EMS Addendum: 03/02/20 at 1745 by DIANE RODRIGUES RN CM Amended: Links added.
--- NOTE | 2020-03-02 16:54 | NUR ---
[facility] REPORT GIVEN KAM RAMOS LVN.
--- NOTE | 2020-03-02 16:57 | NUR ---
EMS EMS CALLED FOR TRANSPORT TO [facility]
== END 2020-03-02 18:30 | DRG 70 ==
LOC: EDH 11:19 → EDHIP 14:15 → 3AH 19:50 → 2DH 02-25 17:30 → 3CH 02-26 17:37 → 2DH 02-29 14:34 → 3BH 03-01 12:52
PROVIDERS: ADMIT Internal Medicine Nephrology; ATTEND Internal Medicine Nephrology
PROC: 5A09357 Assistance with Respiratory Ventilation, Less than 24 Consecutive Hours, Continuous Positive Airway Pressure (ICD-10-PCS; principal; 2020-02-23)
PROC: 5A09357 Assistance with Respiratory Ventilation, Less than 24 Consecutive Hours, Continuous Positive Airway Pressure (ICD-10-PCS; 2020-02-24)
PROC: 5A09357 Assistance with Respiratory Ventilation, Less than 24 Consecutive Hours, Continuous Positive Airway Pressure (ICD-10-PCS; 2020-02-25)
PROC: 5A09357 Assistance with Respiratory Ventilation, Less than 24 Consecutive Hours, Continuous Positive Airway Pressure (ICD-10-PCS; 2020-02-27)
PROC: 5A09357 Assistance with Respiratory Ventilation, Less than 24 Consecutive Hours, Continuous Positive Airway Pressure (ICD-10-PCS; 2020-02-28)
DX: G93.41 Metabolic encephalopathy (principal); J18.9 Pneumonia, unspecified organism; J96.21 Acute and chronic respiratory failure with hypoxia; I50.33 Acute on chronic diastolic (congestive) heart failure; N17.9 Acute kidney failure, unspecified; E87.3 Alkalosis; E87.4 Mixed disorder of acid-base balance; E66.2 Morbid (severe) obesity with alveolar hypoventilation; N39.0 Urinary tract infection, site not specified; J44.0 Chronic obstructive pulmonary disease with (acute) lower respiratory infection; J44.1 Chronic obstructive pulmonary disease with (acute) exacerbation; E87.70 Fluid overload, unspecified; E11.9 Type 2 diabetes mellitus without complications; Z20.828 Contact with and (suspected) exposure to other viral communicable diseases; E87.6 Hypokalemia; E83.42 Hypomagnesemia; Y95 Nosocomial condition; D64.9 Anemia, unspecified; E78.00 Pure hypercholesterolemia, unspecified; I11.0 Hypertensive heart disease with heart failure; Z88.0 Allergy status to penicillin; Z91.19 Patient's noncompliance with other medical treatment and regimen; F41.9 Anxiety disorder, unspecified; Z03.818 Encounter for observation for suspected exposure to other biological agents ruled out; Z53.29 Procedure and treatment not carried out because of patient's decision for other reasons
CPT/HCPCS: 36415; 36600; 71045; 71250; 80048; 80053; 80305; 81001; 82140; 82435; 82728; 82803; 82947; 82948; 83540; 83550; 83605; 83615; 83690; 83735; 83880; 84100; 84132; 84145; 84295; 84484; 85018; 85025; 85027; 85378; 85610; 85730; 86140; 87077; 87088; 87186; 87635; 87804; 93005; 93306; 93356; 93970; 94640; 94660; 94664; 94760; 97039; A4606; G0378; J0290; J0360; J1650; J1815; J1940; J1956; J2185; J2920; J2930; J3475; J3490; J7030; J7050

== ENCOUNTER 2020-03-25 18:37 | Inpatient (IN) | payer MEDICARE ==
[~2020-03-25] VITALS: Ht 154.9 cm; Wt 111.1 kg
[~2020-03-25 18:37] MED LIST changes: -ALLO300T2 PO; -AMOX1TAB16 PO; -BACL10TA PO; -CILO100T PO; -CLIN300C9 PO; +ESCI10TA54 PO; -ESOM40CA PO; -FERS325 PO; -FURO40TA5 PO; -ISOS20TA7 PO; +ISOS30TA6 PO; +LEVO500T89 PO; -LORA1TAB3 PO; -MONT10TA26 PO; -PREG50 PO; -SERT50TA12 PO; -insulin
[2020-03-25 19:35] LABS: BASOPHILS % (AUTO) 0.7 % (0.0-5.0); HEMATOCRIT 31.9 % (36-48); LYMPHOCYTES % (AUTO) 28.4 % (21.0-51.0); MEAN CORPUSCULAR HEMOGLOBIN 26.5 pg (27.0-33.0); MEAN CORPUSCULAR HGB CONC 30.1 g/dL (32.0-36.0); MEAN CORPUSCULAR VOLUME 88.1 fL (79-99); MONOCYTES % (AUTO) 9.4 % (3.0-13.0); NEUTROPHILS % (AUTO) 52.3 % (40.0-77.0); PLATELET COUNT (AUTO) 216 K/uL (130-400); RED BLOOD CELL COUNT(AUTO) 3.62 MIL/uL (4.00-5.50); RED CELL DISTRIBUTION WIDTH 14.7 % (11.0-15.5); WHITE BLOOD COUNT (AUTO) 5.8 K/uL (4.8-10.8)
[2020-03-25] MEDS ORDERED: METHYLPREDNISOLONE SOD SUCC 125MG/2ML VIAL ONE (19:40)
[2020-03-25 19:49] LABS: INR 0.89 (0.85-1.15); PARTIAL THROMBOPLASTIN TIME 25.4 SEC (26.3-35.5); PROTHROMBIN TIME 9.7 SEC (9.6-11.6)
[2020-03-25] MEDS ORDERED: LEVOFLOXACIN 750 MG/D5W 150 ML 150 ML ONE (19:57)
[2020-03-25 20:02] LABS: ABG BASE EXCESS -3.4 mmol/L (-2.0-3.0); ABG HCO3 24.8 mmol/L (21.0-28.0); ABG OXYGEN SATURATION 99.2 % (95.0-99.0); ABG PCO2 57 mmHg (32-45)
[2020-03-25 20:45] LABS: CARBON DIOXIDE 28 mmol/L (21-32); CHLORIDE 104 mmol/L (101-111); CREATININE 1.9 mg/dL (0.5-1.5); GLOMERULAR FILTR. RATE CALC 28 mL/min (>60); GLUCOSE,RANDOM 208 mg/dL (70-105); POTASSIUM 5.3 mmol/L (3.5-5.1); SODIUM SERUM 138 mmol/L (136-145); UREA NITROGEN, BLOOD 38 mg/dL (7-18)
[2020-03-25 20:57] LABS: ALANINE AMINOTRANSFERASE 25 U/L (12-78); ALBUMIN 2.7 g/dL (3.5-5.0); ASPARTATE AMINOTRANSFERASE 16 U/L (10-37); BILIRUBIN,TOTAL 0.3 mg/dL (0.2-1.0); CREATINE KINASE, TOTAL 17 U/L (21-232); MYOGLOBIN 30 ng/mL (10-92); TOTAL PROTEIN, SERUM 6.6 g/dL (6.0-8.3); TROPONIN I < 0.04 ng/mL (0.00-0.06)
[2020-03-25] MEDS ORDERED: ALBUTEROL INHALER 90MCG/INH IH ONE (22:15)
[2020-03-25] MEDS ORDERED: IPRATROPIUM 0.5 MG/2.5 ML INH IH SCH (23:15)
[2020-03-25] MEDS ORDERED: IPRATROPIUM/ALBUTEROL SULFATE 3 ML SOLUTION IH PRN (23:45)
--- NOTE | 2020-03-26 01:05 | NUR ---
RECEIVED RECEIVED REPORT FROM OUT GOING NURSE. PT IS VERY SLEEPY AT THIS TIME. NO CONCERNS VERBALIZED. MAINTAINED ON O2 AT 3LPM VIA NC. KEPT COMFORTABLE IN BED WITH HOB ELEVATED. ASSUMED CARE OF PT.
--- NOTE | 2020-03-26 02:00 | NUR ---
ROUNDS PT RESTING WELL, FAIRLY ASLEEP. NO DISTRESS NOTED. KEPT RESTED AND COMFORTABLE. CALL LIGHT WITHIN REACH. WILL MONITOR PT.
[2020-03-26] MEDS ORDERED: IPRATROPIUM 0.5 MG/2.5 ML INH IH ONE (02:43)
[2020-03-26 04:00] VITALS: BP 100/49
--- NOTE | 2020-03-26 06:00 | NUR ---
DIAPER PT CALLS AND ASKED FOR DIAPER CHANGE. CLEANSED PT AND KEPT DRY. KEPT COMFORTABLE WITH HOB ELEVATED. FOR MORE CARE.
[2020-03-26] MEDS ORDERED: PANTOPRAZOLE SODIUM 80 MG in NS 100ML IVP SCH (06:15)
[2020-03-26 08:10] VITALS: BP 118/57
--- NOTE | 2020-03-26 08:10 | NUR ---
ASSUMED CARE OF PATIENT PATIENT SITTING UP ON BED. HOB 30 DEGREES. RESPIRATIONS LABORED AT TIMES OF EXERTION, REPOSITIONING. PATIENT ALSO NOTED TO REMOVE OXYGEN AT TIMES AND INSTRUCTED TO KEEP OXYGEN ON AT ALL TIMES BECAUSE O2 SATURATIONS NOTED TO DROP TO 80'S. UPON PLACING O2 NC PATIENTS O2 SATS RECOVER OVER 3-5 MINUTES. PT NOTED TO BE FLACCID TO BLE AND CONTRACTED TO BLE. PT VOIDS INCONTINENT HAS DIAPER IN PLACE. PATIENT CALL CAVAZOS IN REACH. REPOSITIONS PATIENT IN THE BED. BED IN LOWEST POSITION. SIDE RAILS UP X 2.
--- NOTE | 2020-03-26 12:15 | NUR ---
TRANSFER TO FLOOR CALLED REPORT TO 3RD FLOOR NURSE, EVERARDO BOWLING.
[2020-03-26 12:45] VITALS: BP 138/72
[2020-03-26 16:00] VITALS: BP 119/66
[2020-03-26] MEDS ORDERED: HYDROXYZINE HCL 25 MG TABLET PO PRN (16:00)
[2020-03-26] MEDS ORDERED: INSULIN HUMULIN R 100 UNIT/ML 3ML ONE ×2 (17:13→20:39)
--- NOTE | 2020-03-26 18:18 | NUR ---
INITIAL Pt remains in ED. Call placed to pt's granddtr Aylin(as listed in facesheet). Per Aylin prior to admission pt was living w her and her cousin. She mentions that pt is mostly bed bound and receives provider services approximately 48hr/week. Pt has at home a hosp bed, wc, sh chair, home O2, nebulizer. Per Aylin pt utilizes Medicaid transport services for transportation needs. She mentions that plan will be for pt to return home at co and will poss need EMS transport home at co. CM to continue to follow and wait for Md recommendations. Addendum: 03/26/20 at 1821 by RAMIRO EDDY Amended: Links added.
[2020-03-26] MEDS: ALBUTEROL SULFATE 0.083% 2.5 MG/3 ML INH IH SCH (18:50)
[2020-03-26] MEDS: BUDESONIDE 0.5 MG/2 ML INH IH SCH (19:00)
--- NOTE | 2020-03-26 19:40 | NUR ---
PM Assessment Received pt watching TV, routine assessment done, plan of care discuss, made her aware that as reported plan for CM to find placement for her. Per pt claimed she has her own place & her daughter does help care for her as she is her provider. Per pt stated DCP was to go back home. Pt currently denies discomfort.
[2020-03-26 20:00] VITALS: BP 143/55
[2020-03-26] MEDS: POTASSIUM CHLORIDE 10 MEQ/TAB.SA PO SCH (20:44)
[2020-03-26] MEDS: CARVEDILOL 6.25 MG TABLET PO SCH (20:45)
[2020-03-26] MEDS: FUROSEMIDE 40 MG TABLET PO SCH (20:45)
[2020-03-26] MEDS: ATORVASTATIN CALCIUM 10 MG TABLET PO SCH (20:46)
[2020-03-26] MEDS: INSULIN GLARGINE 100 UNITS/ML 10 ML VIAL SQ SCH (20:51)
[2020-03-26] MEDS: INSULIN HUMULIN R 100 UNIT/ML 3ML SQ SCH (20:53)
[2020-03-26] MEDS ORDERED: INSULIN HUMULIN R 100 UNIT/ML 3ML SQ SCH (21:00)
[2020-03-26] MEDS: IPRATROPIUM 0.5 MG/2.5 ML INH IH SCH (22:18)
[2020-03-27] VITALS (7 sets, daily range): BP systolic 94–123; BP diastolic 39–57
[2020-03-27] MEDS: ALBUTEROL SULFATE 0.083% 2.5 MG/3 ML INH IH SCH ×5 (00:10→18:56)
[2020-03-27 03:44] LABS: MEAN CORPUSCULAR HEMOGLOBIN 26.5 pg (27.0-33.0); MEAN CORPUSCULAR HGB CONC 30.7 g/dL (32.0-36.0); MEAN CORPUSCULAR VOLUME 86.4 fL (79-99); PLATELET COUNT (AUTO) 252 K/uL (130-400); RED BLOOD CELL COUNT(AUTO) 3.24 MIL/uL (4.00-5.50); RED CELL DISTRIBUTION WIDTH 14.6 % (11.0-15.5)
[2020-03-27 03:59] LABS: BAND NEUTROPHILS % (MANUAL) 4 % (0-2); LYMPHOCYTES % (MANUAL) 16 % (22-44); MAN.DIFF COMMENT-IMPRESSION MANUAL DIFFERENTIAL; PLATELET MORPHOLOGY COMMENT ADEQUATE; SEGMENTED NEUTROPHILS % 80 % (40-70)
[2020-03-27 04:06] LABS: CREATININE 1.5 mg/dL (0.5-1.5); PHOSPHORUS 2.9 mg/dL (2.5-4.9); POTASSIUM 4.7 mmol/L (3.5-5.1)
[2020-03-27] MEDS: BUDESONIDE 0.5 MG/2 ML INH IH SCH ×3 (06:31→19:10)
[2020-03-27] MEDS: IPRATROPIUM 0.5 MG/2.5 ML INH IH SCH ×2 (06:31→13:55)
[2020-03-27] MEDS: INSULIN HUMULIN R 100 UNIT/ML 3ML SQ SCH ×4 (06:33→22:09)
[2020-03-27] MEDS: INSULIN GLARGINE 100 UNITS/ML 10 ML VIAL SQ SCH ×2 (09:56→22:08)
[2020-03-27] MEDS: ASPIRIN 325 MG TABLET PO SCH (10:00)
[2020-03-27] MEDS: CITALOPRAM 20 MG TABLET PO SCH (10:02)
[2020-03-27] MEDS: CARVEDILOL 6.25 MG TABLET PO SCH ×2 (10:03→21:00)
[2020-03-27] MEDS: ISOSORBIDE MONO 30MG TAB SR PO SCH (10:03)
[2020-03-27] MEDS: FUROSEMIDE 40 MG TABLET PO SCH ×2 (10:04→22:24)
[2020-03-27] MEDS: AMLODIPINE BESYLATE 5 MG TAB PO SCH (10:04)
[2020-03-27] MEDS: LEVOFLOXACIN 500 MG TABLET PO SCH (10:04)
[2020-03-27] MEDS: POTASSIUM CHLORIDE 10 MEQ/TAB.SA PO SCH ×2 (10:05→22:23)
[2020-03-27] MEDS: PANTOPRAZOLE SODIUM 40 MG TABLET.DR PO SCH (10:06)
[2020-03-27] MEDS: OLANZAPINE ODT 5 MG TAB PO SCH (10:06)
[2020-03-27] MEDS: LISINOPRIL 10 MG TABLET PO SCH (10:06)
[2020-03-27] MEDS: ATORVASTATIN CALCIUM 10 MG TABLET PO SCH (22:22)
--- NOTE | 2020-03-27 23:30 | NUR ---
CARVEDILOL MED NOT GIVEN. UNTIL THIS TIME BP STILL LOW.(104/40)
[2020-03-28] MEDS: IPRATROPIUM 0.5 MG/2.5 ML INH IH SCH ×4 (00:10→22:52)
[2020-03-28] MEDS: ALBUTEROL SULFATE 0.083% 2.5 MG/3 ML INH IH SCH ×5 (00:10→23:03)
[2020-03-28 03:56] VITALS: BP 105/47
[2020-03-28 05:15] LABS: BASOPHILS % (AUTO) 0.8 % (0.0-5.0); EOSINOPHILS % (AUTO) 3.7 % (0.0-8.0); HEMATOCRIT 31.6 % (36-48); LYMPHOCYTES % (AUTO) 22.9 % (21.0-51.0); MEAN CORPUSCULAR HEMOGLOBIN 27.2 pg (27.0-33.0); MEAN CORPUSCULAR HGB CONC 30.7 g/dL (32.0-36.0); MEAN CORPUSCULAR VOLUME 88.5 fL (79-99); MONOCYTES % (AUTO) 6.6 % (3.0-13.0); NEUTROPHILS % (AUTO) 64.1 % (40.0-77.0); PLATELET COUNT (AUTO) 291 K/uL (130-400); RED BLOOD CELL COUNT(AUTO) 3.57 MIL/uL (4.00-5.50); RED CELL DISTRIBUTION WIDTH 15.6 % (11.0-15.5); WHITE BLOOD COUNT (AUTO) 4.9 K/uL (4.8-10.8)
[2020-03-28 05:32] LABS: CREATININE 1.4 mg/dL (0.5-1.5); PHOSPHORUS 3.8 mg/dL (2.5-4.9); POTASSIUM 3.9 mmol/L (3.5-5.1)
[2020-03-28 05:44] LABS: % IRON SATURATION 26.3 % (22-44)
[2020-03-28] MEDS: INSULIN HUMULIN R 100 UNIT/ML 3ML SQ SCH ×4 (06:40→20:30)
[2020-03-28] MEDS: BUDESONIDE 0.5 MG/2 ML INH IH SCH ×3 (06:48→18:44)
[2020-03-28 06:57] LABS: APPEARANCE,URINE CLEAR (CLEAR); BILIRUBIN,URINE NEGATIVE (NEGATIVE); COLOR,URINE YELLOW (YELLOW); GLUCOSE, URINE (UA) NEGATIVE (NEGATIVE); KETONES,URINE NEGATIVE (NEGATIVE); LEUKOCYTE ESTERASE ,URINE LARGE (NEGATIVE); NITRATE,URINE NEGATIVE (NEGATIVE); OCCULT BLOOD,URINE NEGATIVE (NEGATIVE); PROTEIN,URINE NEGATIVE (NEGATIVE); UROBILINOGEN,URINE 0.2 mg/dL (0.2-1.0)
[2020-03-28 07:09] LABS: BACTERIA,URINE Rare /HPF (None Seen); RBC,URINE 0-1 /HPF (0-1); SQUAMOUS EPITHELIAL CELL,UR Rare /HPF (0-2); YEAST,URINE BUDDING Few /HPF (None Seen)
[2020-03-28 08:00] VITALS: BP 116/56
[2020-03-28] MEDS: AMLODIPINE BESYLATE 5 MG TAB PO SCH (08:41)
[2020-03-28] MEDS: CARVEDILOL 6.25 MG TABLET PO SCH ×2 (08:42→20:29)
[2020-03-28] MEDS: ASPIRIN 325 MG TABLET PO SCH (08:42)
[2020-03-28] MEDS: OLANZAPINE ODT 5 MG TAB PO SCH (08:42)
[2020-03-28] MEDS: LISINOPRIL 10 MG TABLET PO SCH (08:42)
[2020-03-28] MEDS: FUROSEMIDE 40 MG TABLET PO SCH ×2 (08:42→20:30)
[2020-03-28] MEDS: CITALOPRAM 20 MG TABLET PO SCH (08:43)
[2020-03-28] MEDS: POTASSIUM CHLORIDE 10 MEQ/TAB.SA PO SCH ×2 (08:43→20:30)
[2020-03-28] MEDS: PANTOPRAZOLE SODIUM 40 MG TABLET.DR PO SCH (08:43)
[2020-03-28] MEDS: ISOSORBIDE MONO 30MG TAB SR PO SCH (08:43)
[2020-03-28] MEDS: INSULIN GLARGINE 100 UNITS/ML 10 ML VIAL SQ SCH ×2 (08:47→20:30)
[2020-03-28 11:52] VITALS: BP 109/60
[2020-03-28 16:00] VITALS: BP 94/51
[2020-03-28 20:00] VITALS: BP 98/50
[2020-03-28] MEDS: ATORVASTATIN CALCIUM 10 MG TABLET PO SCH (20:30)
--- NOTE | 2020-03-29 00:15 | NUR ---
spoke with CRISTINA huntley, twice about patient's fever of 101.7 degrees. she ordered 650 mg of acetaminophen q4 hours prn for fever and headache. patient has a headache and cough and she is restless. i explained that earlier today the blood culture was gram positive cocci and clusters 1 out of 2 sets. she spoke with doctor jaime and he ordered 1.5 grams of vancomycin once. for restlessness she told me to give atarax. she also ordered a covid test for the patient, which will be done in the day by the charge nurse or somebody who is certified to do it. will continue to monitor the patient
[2020-03-29] MEDS ORDERED: ACETAMINOPHEN 325 MG TAB ONE (00:19)
[2020-03-29] MEDS: ACETAMINOPHEN 325 MG TAB PO PRN ×2 (00:23→10:35)
[2020-03-29] MEDS ORDERED: VANCOMYCIN 1GM+NS 250ML 250 ML IV ONE ×2 (00:36→00:45)
[2020-03-29] MEDS: IPRATROPIUM/ALBUTEROL SULFATE 3 ML SOLUTION IH PRN ×2 (02:55→18:52)
[2020-03-29 04:00] VITALS: BP 107/51
[2020-03-29] MEDS: ALBUTEROL SULFATE 0.083% 2.5 MG/3 ML INH IH SCH ×3 (06:00→18:00)
[2020-03-29] MEDS ORDERED: GLUCAGON 1MG KIT 1 MG ML IM PRN (06:00)
[2020-03-29] MEDS ORDERED: DEXTROSE 50%-WATER 50 ML DISP.SYRIN IV PRN (06:00)
--- NOTE | 2020-03-29 06:00 | NUR ---
blood glucose of 57, i gave 2 jimmy crackers to patient and 1 tablespoon of applesauce since the patient refused orange juice and apple juice as well as jello. i also gave dextrose 50% amp syringe and ordered a stat random glucose blood sample. will continue to monitor
[2020-03-29] MEDS ORDERED: DEXTROSE 50%-WATER 50 ML DISP.SYRIN IV ONE (06:07)
[2020-03-29] MEDS: INSULIN HUMULIN R 100 UNIT/ML 3ML SQ SCH ×2 (06:16→11:30)
--- NOTE | 2020-03-29 06:36 | NUR ---
patient's recheck of blood glucose is 161.
--- NOTE | 2020-03-29 08:00 | NUR ---
COVID-19 TEST DONE BY CHARGE NURSE FANNY JAMIL.
[2020-03-29 08:23] VITALS: BP 140/54
[2020-03-29] MEDS: BUDESONIDE 0.5 MG/2 ML INH IH SCH ×2 (08:28→18:52)
[2020-03-29] MEDS: IPRATROPIUM 0.5 MG/2.5 ML INH IH SCH ×3 (08:28→19:53)
[2020-03-29] MEDS: INSULIN GLARGINE 100 UNITS/ML 10 ML VIAL SQ SCH ×2 (08:29→19:53)
[2020-03-29] MEDS: CARVEDILOL 6.25 MG TABLET PO SCH ×2 (08:42→20:11)
[2020-03-29] MEDS: POTASSIUM CHLORIDE 10 MEQ/TAB.SA PO SCH ×2 (08:42→19:52)
[2020-03-29] MEDS: ISOSORBIDE MONO 30MG TAB SR PO SCH (08:43)
[2020-03-29] MEDS: OLANZAPINE ODT 5 MG TAB PO SCH (08:44)
[2020-03-29] MEDS: LISINOPRIL 10 MG TABLET PO SCH (08:44)
[2020-03-29] MEDS: PANTOPRAZOLE SODIUM 40 MG TABLET.DR PO SCH (08:44)
[2020-03-29] MEDS: AMLODIPINE BESYLATE 5 MG TAB PO SCH (08:45)
[2020-03-29] MEDS: CITALOPRAM 20 MG TABLET PO SCH (08:45)
[2020-03-29] MEDS: FUROSEMIDE 40 MG TABLET PO SCH ×2 (08:45→19:53)
[2020-03-29] MEDS: ASPIRIN 325 MG TABLET PO SCH (09:10)
[2020-03-29] MEDS: LEVOFLOXACIN 500 MG TABLET PO SCH (09:10)
--- NOTE | 2020-03-29 09:30 | NUR ---
DR. Lula JOHNSON IN TO SEE PT. DISCHARGE ORDERS ENTERED.
[2020-03-29 11:46] VITALS: BP 120/45
--- NOTE | 2020-03-29 15:30 | NUR ---
WAITING ON AMBULANCE TO TRANSPORT PT. HOME. PT READY AND ANXIOUS, DISCHARGE INST. HAVE BEEN GIVEN AND VERBALIZES UNDERSTANDING. ALSO TALKED TO A FAMILY MEMBER AND THEY ARE WAITING ON HER.
--- NOTE | 2020-03-29 18:09 | NUR ---
SPOKE WITH PT'S GRAND DAUGHTER GERARDO BRODERICK ([phone]) TO NOTIFY OF DISCHARGE ORDERS AND PENDING EMS TRANSPORT HOME TONIGHT. MS BRODERICK STATED SHE IS HOME AND READY TO RECEIVE PATIENT WHEN SHE ARRIVES.
[2020-03-29] MEDS: ATORVASTATIN CALCIUM 10 MG TABLET PO SCH (19:52)
--- NOTE | 2020-03-29 20:43 | NUR ---
patient picked up by ambulance and will be taken to [facility]. patient left with hospital down because her clothes is dirty. patient refused her 21:00 medications. her vitals are stable
[2020-03-29] MEDS ORDERED: VANCOMYCIN 1.5 GM in SODIUM CHLORIDE 0.9% 250 ML IV SCH (21:00)
== END 2020-03-29 20:45 | disposition home or self-care (01) | DRG 177 ==
LOC: EDH 18:37 → EDHIP 22:50 → 3AH 03-26 13:03
PROVIDERS: ADMIT Internal Medicine Nephrology; ATTEND Internal Medicine Nephrology
DX: U07.1 COVID-19 (principal); J96.21 Acute and chronic respiratory failure with hypoxia; N18.6 End stage renal disease; I12.0 Hypertensive chronic kidney disease with stage 5 chronic kidney disease or end stage renal disease; J44.1 Chronic obstructive pulmonary disease with (acute) exacerbation; E87.70 Fluid overload, unspecified; E11.22 Type 2 diabetes mellitus with diabetic chronic kidney disease; Z88.0 Allergy status to penicillin; Z88.8 Allergy status to other drugs, medicaments and biological substances; Z91.19 Patient's noncompliance with other medical treatment and regimen
CPT/HCPCS: 36415; 36600; 71045; 80048; 80053; 81001; 82550; 82803; 82947; 82948; 83540; 83550; 83605; 83874; 83880; 84100; 84145; 84484; 85025; 85610; 85730; 87040; 87077; 87088; 87186; 93005; 94640; 94664; G0378; J1815; J1956; J2930; J3370; J7070; U0003

== ENCOUNTER 2020-03-31 10:08 | Inpatient (IN) | payer MEDICARE ==
[~2020-03-31] VITALS: Ht 152.4 cm; Wt 85.7 kg
[2020-03-31 12:38] LABS: BASOPHILS % (AUTO) 0.8 % (0.0-5.0); EOSINOPHILS % (AUTO) 0.2 % (0.0-8.0); HEMATOCRIT 33.1 % (36-48); LYMPHOCYTES % (AUTO) 29.9 % (21.0-51.0); MEAN CORPUSCULAR HGB CONC 30.8 g/dL (32.0-36.0); MEAN CORPUSCULAR VOLUME 87.6 fL (79-99); MONOCYTES % (AUTO) 16.6 % (3.0-13.0); NEUTROPHILS % (AUTO) 44.7 % (40.0-77.0); PLATELET COUNT (AUTO) 399 K/uL (130-400); RED BLOOD CELL COUNT(AUTO) 3.78 MIL/uL (4.00-5.50); RED CELL DISTRIBUTION WIDTH 15.7 % (11.0-15.5); WHITE BLOOD COUNT (AUTO) 6.3 K/uL (4.8-10.8)
[2020-03-31 13:01] LABS: INR 3.13 (0.85-1.15); PROTHROMBIN TIME 32.4 SEC (9.6-11.6)
[2020-03-31 13:15] LABS: CARBON DIOXIDE 32 mmol/L (21-32); CHLORIDE 100 mmol/L (101-111); CREATININE 2.1 mg/dL (0.5-1.5); GLOMERULAR FILTR. RATE CALC 25 mL/min (>60); GLUCOSE,RANDOM 214 mg/dL (70-105); POTASSIUM 4.5 mmol/L (3.5-5.1); SODIUM SERUM 140 mmol/L (136-145); UREA NITROGEN, BLOOD 37 mg/dL (7-18)
[2020-03-31 13:44] LABS: ALANINE AMINOTRANSFERASE 17 U/L (12-78); ALBUMIN 2.3 g/dL (3.5-5.0); ASPARTATE AMINOTRANSFERASE 30 U/L (10-37); BILIRUBIN,TOTAL 0.4 mg/dL (0.2-1.0); CREATINE KINASE, TOTAL 30 U/L (21-232); MYOGLOBIN 77 ng/mL (10-92); TOTAL PROTEIN, SERUM 6.3 g/dL (6.0-8.3); TROPONIN I < 0.04 ng/mL (0.00-0.06)
[2020-03-31 14:08] LABS: PARTIAL THROMBOPLASTIN TIME > 120.0 SEC (26.3-35.5)
[2020-03-31] MEDS ORDERED: METHYLPREDNISOLONE SOD SUCC 40MG/ML 1ML ONE (19:03)
[2020-03-31 19:55] VITALS: BP 102/56
[2020-03-31] MEDS ORDERED: DEXTROSE 50%-WATER 50 ML DISP.SYRIN IV PRN (20:45)
[2020-03-31] MEDS ORDERED: GLUCAGON 1MG KIT 1 MG ML IM PRN (20:45)
[2020-03-31] MEDS ORDERED: ALBUTEROL INHALER 90MCG/INH IH PRN (21:00)
[2020-03-31] MEDS ORDERED: LEVOFLOXACIN 500 MG/D5W 100 ML 100 ML IV SCH ×2 (21:00→22:00)
[2020-03-31] MEDS ORDERED: ACETAMINOPHEN 325 MG TAB PO PRN ×2 (21:00)
[2020-03-31] MEDS: ALBUTEROL INHALER 90MCG/INH IH SCH (21:00)
[2020-03-31] MEDS ORDERED: ONDANSETRON HCL 4 MG/2 ML VIAL IV PRN (21:00)
[2020-03-31] MEDS ORDERED: NITROGLYCERIN 0.4 MG SL TAB SL PRN (21:00)
[2020-03-31 21:42] LABS: MAGNESIUM 1.8 mg/dL (1.80-2.40)
[2020-03-31 21:44] LABS: HEMOGLOBIN A1C 8.9 % (4.0-6.0)
--- NOTE | 2020-03-31 21:54 | NUR ---
Spoke to Dr. Wylie regarding new consult and he said that its not possible to see patient right now and that he will see the patient tomorrow since patient is sating at 93% on 4 liters which I informed him. No new orders were given Addendum: 04/01/20 at 0204 by DIANE CRUZ RN RN Not Pean But spoke to DR. Leon
[2020-03-31 21:58] LABS: CRP QUANTITATIVE 164.6 mg/L (0.00-9.0)
[2020-03-31 22:08] LABS: INR 0.96 (0.85-1.15); PARTIAL THROMBOPLASTIN TIME 30.6 SEC (26.3-35.5); PROTHROMBIN TIME 10.4 SEC (9.6-11.6)
[2020-03-31] MEDS ORDERED: ALBUTEROL INHALER 90MCG/INH IH ONE (22:09)
[2020-03-31] MEDS ORDERED: INSULIN HUMULIN R 100 UNIT/ML 3ML ONE (22:10)
[2020-03-31] MEDS ORDERED: ERGOCALCIFEROL (VITAMIN D2) 50,000 UNIT CAPSULE ONE (22:10)
[2020-03-31] MEDS: ERGOCALCIFEROL (VITAMIN D2) 50,000 UNIT CAPSULE PO ONE (22:15)
[2020-03-31 22:45] VITALS: BP 80/42
[2020-03-31] MEDS ORDERED: SODIUM CHLORIDE 0.9% 1000ML 1,000 ML IV SCH (22:45)
[2020-03-31 22:53] VITALS: BP 90/50
[2020-03-31 23:00] VITALS: BP 92/48
[2020-03-31] MEDS: INSULIN HUMULIN R 100 UNIT/ML 3ML SQ SCH (23:00)
[2020-03-31 23:02] LABS: ABG OXYGEN SATURATION 88.3 % (95.0-99.0); ABG PCO2 67 mmHg (32-45)
[2020-03-31] MEDS ORDERED: LEVOFLOXACIN 500 MG/D5W 100 ML 100 ML ONE (23:33)
[2020-04-01] VITALS (22 sets, daily range): BP systolic 90–146; BP diastolic 29–115
[2020-04-01] MEDS ORDERED: NOREPINEPHRINE 4MG/NS 250ML 250 ML IV ONE ×2 (00:02→05:55)
--- NOTE | 2020-04-01 00:24 | NUR ---
Spoke to Daughter Frida Gonzalez regarding patients new health status.
[2020-04-01 00:56] LABS: ABG BASE EXCESS -1.6 mmol/L (-2.0-3.0); ABG HCO3 26.6 mmol/L (21.0-28.0); ABG PCO2 63 mmHg (32-45)
[2020-04-01] MEDS: ALBUTEROL INHALER 90MCG/INH IH SCH ×6 (01:00→20:43)
[2020-04-01 01:04] LABS: CREATINE KINASE, TOTAL 17 U/L (21-232); MYOGLOBIN 75 ng/mL (10-92); TROPONIN I < 0.04 ng/mL (0.00-0.06)
[2020-04-01] MEDS ORDERED: ENOXAPARIN SODIUM 80 MG/0.8 ML SQ SCH (02:00)
--- NOTE | 2020-04-01 02:00 | NUR ---
Gave report to Alex MCGEE ER staff and transferred care to him.
--- NOTE | 2020-04-01 02:13 | NUR ---
@ 2240 03/31 I rounded to see patient and saw that patient was dusky tried to wake her up but she was very drowsy. Checked blood pressure which was 80/42 @2245 and O2 level of 95% on 4L per NC. At that time Patrick ValenciaP for hospitalist was right outside and came to see the patient. She ordered 1L of NS bolus which was given. Labs and ABG was ordered. . recheck for her BP at 2253 was 90/50 heart rate of 74 sating at 92% on 4L. Patient was placed on BIpap by RT at 2300. SPoke to Dr. Leon at 2312 regarding patient new status and results of the ABG's he then spoke to Patrick Gramajo. New orders were given and executed. Patient is now an ICU patient and waiting for a bed to open up. Paged DR. Leon regarding new results for ABG's at 0110 pending call back. Transferred care to Aelx MCGEE for a higher level of care.
[2020-04-01 02:23] LABS: BASOPHILS % (AUTO) 0.7 % (0.0-5.0); HEMATOCRIT 30.1 % (36-48); LYMPHOCYTES % (AUTO) 13.7 % (21.0-51.0); MEAN CORPUSCULAR HEMOGLOBIN 26.8 pg (27.0-33.0); MEAN CORPUSCULAR HGB CONC 30.2 g/dL (32.0-36.0); MEAN CORPUSCULAR VOLUME 88.8 fL (79-99); MONOCYTES % (AUTO) 6.2 % (3.0-13.0); NEUTROPHILS % (AUTO) 70.2 % (40.0-77.0); PLATELET COUNT (AUTO) 362 K/uL (130-400); RED BLOOD CELL COUNT(AUTO) 3.39 MIL/uL (4.00-5.50); RED CELL DISTRIBUTION WIDTH 15.5 % (11.0-15.5); WHITE BLOOD COUNT (AUTO) 4.4 K/uL (4.8-10.8)
[2020-04-01 02:27] LABS: CREATININE 2.4 mg/dL (0.5-1.5); POTASSIUM 4.3 mmol/L (3.5-5.1)
[2020-04-01 02:32] LABS: ALBUMIN 2.2 g/dL (3.5-5.0); BILIRUBIN,TOTAL 0.3 mg/dL (0.2-1.0); TOTAL PROTEIN, SERUM 5.8 g/dL (6.0-8.3)
[2020-04-01] MEDS ORDERED: NOREPINEPHRINE 4MG/NS 250ML IV SCH (04:00)
[2020-04-01] MEDS: METHYLPREDNISOLONE SOD SUCC 40MG/ML 1ML IVP SCH ×4 (05:00→20:35)
[2020-04-01 06:43] LABS: HEMATOCRIT 33.1 % (36-48); LYMPHOCYTES % (AUTO) 18.3 % (21.0-51.0); MEAN CORPUSCULAR HGB CONC 30.8 g/dL (32.0-36.0); MEAN CORPUSCULAR VOLUME 87.6 fL (79-99); MONOCYTES % (AUTO) 4.3 % (3.0-13.0); NEUTROPHILS % (AUTO) 65.2 % (40.0-77.0); PLATELET COUNT (AUTO) 353 K/uL (130-400); RED BLOOD CELL COUNT(AUTO) 3.78 MIL/uL (4.00-5.50); RED CELL DISTRIBUTION WIDTH 15.2 % (11.0-15.5); WHITE BLOOD COUNT (AUTO) 3.9 K/uL (4.8-10.8)
[2020-04-01 07:38] LABS: ALBUMIN 2.3 g/dL (3.5-5.0); BILIRUBIN,TOTAL 0.4 mg/dL (0.2-1.0); CREATININE 2.3 mg/dL (0.5-1.5); POTASSIUM 4.6 mmol/L (3.5-5.1); TOTAL PROTEIN, SERUM 6.2 g/dL (6.0-8.3); TROPONIN I 0.07 ng/mL (0.00-0.06)
[2020-04-01] MEDS ORDERED: VANCOMYCIN PROTOCOL PER PHARMACY IV SCH (07:45)
[2020-04-01 07:46] LABS: CRP QUANTITATIVE 146.2 mg/L (0.00-9.0)
[2020-04-01] MEDS: ASCORBIC ACID 500 MG TAB PO SCH (08:56)
[2020-04-01] MEDS: ZINC SULFATE 220 CAPSULE PO SCH (08:56)
[2020-04-01] MEDS: FAMOTIDINE 20MG TAB 20 MG TAB PO SCH (08:57)
[2020-04-01] MEDS: SODIUM CHLORIDE 0.9% 1000ML 1,000 ML IV SCH (08:59)
--- NOTE | 2020-04-01 09:09 | NUR ---
CHART CHECK COMPLETED. Pt IS A 64 Y.O. FEMALE ADMITTED SECONDARY TO COMMUNITY ACQUIRED PNEUMONIA, PUI COVID, SEPSIS, RENAL FAILURE. PT HAS A PAST MEDICAL HISTORY SIGNIFICANT FOR COPD, DM, HYPERTENSION, CHF. Pt CURRENTLY ON REGULAR TEXTURE, THIN LIQUIDS (HEART HEALTHY DIET). PLEASE REQUEST SPEECH/SWALLOW EVALUATION IF Pt PRESENTS WITH +S/S OF ASPIRATION DURING MEALS SUCH COUGH RESPONSE, THROAT CLEAR, OR WET VOCAL QUALITY. Addendum: 04/01/20 at 0919 by PERLA ENAMORADO, [facility] Amended: Links added.
[2020-04-01] MEDS: ERGOCALCIFEROL (VITAMIN D2) 50,000 UNIT CAPSULE PO ONE (09:31)
[2020-04-01] MEDS: INSULIN HUMULIN R 100 UNIT/ML 3ML SQ SCH ×3 (09:34→16:29)
[2020-04-01] MEDS: INSULIN GLARGINE 100 UNITS/ML 10 ML VIAL SQ SCH ×2 (09:34→20:53)
[2020-04-01 11:33] LABS: ABG BASE EXCESS -3.9 mmol/L (-2.0-3.0); ABG HCO3 22.8 mmol/L (21.0-28.0); ABG OXYGEN SATURATION 95.4 % (95.0-99.0); ABG PCO2 47 mmHg (32-45)
[2020-04-01] MEDS ORDERED: COMPOUND IV REFRIGERATED 1 EACH IVSOLN MISC PRN (14:15)
[2020-04-01] MEDS ORDERED: VANCOMYCIN 2.5 GM in SODIUM CHLORIDE 0.9% 500ML 500 ML IV ONE (14:15)
--- NOTE | 2020-04-01 16:27 | NUR ---
DCP Information provided by: Dtr. Galicia Farmer Decision maker: Daughters Frida Farmer and Rosenda Celaya Pt's address: [address] [place] [address] Pt. resides at home; two grandtrs reside with her. PHC: Dr. Valderrama [facility]acy: [facility] [place] DME: [employer]ila lift, wheelchair, shower chair, accessible shower/bathroom, glucometer, strips Oxygen concentrator and portable: dtr unable to recall company Pt. is transported by ambulance due to bedbound status Dtr. Frida Farmer is provider/6h daily Contact tel#'s: DtrJohanna Frida Farmer [phone] Dtr. Rosenda Celaya [phone] Pt. has Medicare A,B and Medicaid Supp Addendum: 04/01/20 at 1637 by NICO PALMER SS Amended: Links added.
[2020-04-01] MEDS: DIPHENHYDRAMINE HCL 25 MG CAPSULE PO PRN (20:35)
[2020-04-01] MEDS: LEVOFLOXACIN 250 MG/D5W 50ML 50 ML IVPB SCH (20:35)
[2020-04-01] MEDS: INSULIN LISPRO 100 UNIT/ML 3ML SQ SCH (20:53)
[2020-04-02] VITALS (25 sets, daily range): BP systolic 93–146; BP diastolic 49–91
[2020-04-02] MEDS: SODIUM CHLORIDE 0.9% 1000ML 1,000 ML IV SCH ×2 (01:08→07:55)
[2020-04-02] MEDS: ALBUTEROL INHALER 90MCG/INH IH SCH ×6 (01:10→22:06)
[2020-04-02 04:27] LABS: ABG HCO3 22.4 mmol/L (21.0-28.0); ABG OXYGEN SATURATION 98.5 % (95.0-99.0); ABG PCO2 46 mmHg (32-45)
[2020-04-02] MEDS: INSULIN LISPRO 100 UNIT/ML 3ML SQ SCH ×7 (06:27→21:00)
[2020-04-02] MEDS: INSULIN GLARGINE 100 UNITS/ML 10 ML VIAL SQ SCH ×2 (06:28→22:05)
[2020-04-02 06:57] LABS: BASOPHILS % (AUTO) 0.4 % (0.0-5.0); HEMATOCRIT 30.5 % (36-48); LYMPHOCYTES % (AUTO) 15.8 % (21.0-51.0); MEAN CORPUSCULAR HEMOGLOBIN 26.8 pg (27.0-33.0); MEAN CORPUSCULAR HGB CONC 31.1 g/dL (32.0-36.0); MEAN CORPUSCULAR VOLUME 86.2 fL (79-99); MONOCYTES % (AUTO) 9.8 % (3.0-13.0); NEUTROPHILS % (AUTO) 67.2 % (40.0-77.0); PLATELET COUNT (AUTO) 368 K/uL (130-400); RED BLOOD CELL COUNT(AUTO) 3.54 MIL/uL (4.00-5.50); RED CELL DISTRIBUTION WIDTH 14.9 % (11.0-15.5)
[2020-04-02 07:24] LABS: B-TYPE NATRIURETIC PEPTIDE 289 pg/mL (0-100)
[2020-04-02 07:47] LABS: ALBUMIN 2.2 g/dL (3.5-5.0); BILIRUBIN,TOTAL 0.3 mg/dL (0.2-1.0); CREATININE 1.8 mg/dL (0.5-1.5); CRP QUANTITATIVE 60.9 mg/L (0.00-9.0); POTASSIUM 3.9 mmol/L (3.5-5.1); TOTAL PROTEIN, SERUM 5.9 g/dL (6.0-8.3)
[2020-04-02] MEDS: ZINC SULFATE 220 CAPSULE PO SCH (07:53)
[2020-04-02] MEDS: ASCORBIC ACID 500 MG TAB PO SCH (07:53)
[2020-04-02] MEDS: FAMOTIDINE 20MG TAB 20 MG TAB PO SCH (07:53)
[2020-04-02] MEDS: METHYLPREDNISOLONE SOD SUCC 40MG/ML 1ML IVP SCH ×3 (07:53→22:07)
[2020-04-02] MEDS: ENOXAPARIN SODIUM 80 MG/0.8 ML SQ SCH (07:55)
--- NOTE | 2020-04-02 16:50 | NUR ---
DYSPHAGIA FLAVIA COMPLETED. S/S OF ASPIRATION AT THIS TIME. RECOMMEND REGULAR SOLIDS, THIN LIQUIDS, AND PILLS WHOLE WITH LIQUIDS TOLERATED. YARDING ENGINEER EDUCATED Pt ON RISKS AND CONSEQUENCES OF ASPIRATION. ALL QUESTIONS ANSWERED AT THIS TIME. YARDING ENGINEER COORDINATED WITH NURSE IYER. Addendum: 04/02/[address] SOPHIA ROBLES Amended: Links added.
[2020-04-02] MEDS: LEVOFLOXACIN 250 MG/D5W 50ML 50 ML IVPB SCH (22:06)
[2020-04-03] MEDS: ALBUTEROL INHALER 90MCG/INH IH SCH ×5 (01:33→16:49)
[2020-04-03 03:55] VITALS: BP 144/81
[2020-04-03] MEDS: INSULIN LISPRO 100 UNIT/ML 3ML SQ SCH ×7 (06:11→21:00)
[2020-04-03 06:58] LABS: BASOPHILS % (AUTO) 0.5 % (0.0-5.0); HEMATOCRIT 32.9 % (36-48); LYMPHOCYTES % (AUTO) 8.4 % (21.0-51.0); MEAN CORPUSCULAR HEMOGLOBIN 27.1 pg (27.0-33.0); MEAN CORPUSCULAR HGB CONC 31.3 g/dL (32.0-36.0); MEAN CORPUSCULAR VOLUME 86.6 fL (79-99); MONOCYTES % (AUTO) 7.6 % (3.0-13.0); NEUTROPHILS % (AUTO) 77.5 % (40.0-77.0); NUCLEATED RED BLOOD CELLS 0.4 % (0.0-0.19); PLATELET COUNT (AUTO) 398 K/uL (130-400); RED CELL DISTRIBUTION WIDTH 15.2 % (11.0-15.5); WHITE BLOOD COUNT (AUTO) 7.6 K/uL (4.8-10.8)
[2020-04-03 07:23] LABS: ALBUMIN 2.4 g/dL (3.5-5.0); BILIRUBIN,TOTAL 0.3 mg/dL (0.2-1.0); CREATININE 1.5 mg/dL (0.5-1.5); CRP QUANTITATIVE 24.8 mg/L (0.00-9.0); POTASSIUM 4.1 mmol/L (3.5-5.1); TOTAL PROTEIN, SERUM 6.2 g/dL (6.0-8.3)
[2020-04-03 08:00] VITALS: BP 150/91
[2020-04-03] MEDS ORDERED: VANCOMYCIN 1GM+NS 250ML 250 ML IV SCH (09:00)
[2020-04-03] MEDS: METHYLPREDNISOLONE SOD SUCC 40MG/ML 1ML IVP SCH ×3 (09:27→21:18)
[2020-04-03] MEDS: ZINC SULFATE 220 CAPSULE PO SCH (09:27)
[2020-04-03] MEDS: FAMOTIDINE 20MG TAB 20 MG TAB PO SCH (09:27)
[2020-04-03] MEDS: ASCORBIC ACID 500 MG TAB PO SCH (09:27)
[2020-04-03] MEDS: ENOXAPARIN SODIUM 80 MG/0.8 ML SQ SCH (09:28)
[2020-04-03] MEDS: INSULIN GLARGINE 100 UNITS/ML 10 ML VIAL SQ SCH ×2 (09:30→21:20)
[2020-04-03 12:00] VITALS: BP 152/85
[2020-04-03 16:00] VITALS: BP 118/59
--- NOTE | 2020-04-03 16:00 | NUR ---
FOLLOW UP COMPLETED GEAR SHAPER SET UP OPERATOR COORDINATED WITH NURSE. Pt TOLERATING DIET RECOMMENDATIONS WITH NO S/S OF ASPIRATION AT THIS TIME. CONTINUE WITH PLAN OF CARE TOLERATED. Addendum: 04/03/[address] SOPHIA ROBLES Amended: Links added.
[2020-04-03 19:55] VITALS: BP 155/73
[2020-04-03] MEDS: LEVOFLOXACIN 250 MG/D5W 50ML 50 ML IVPB SCH (21:19)
[2020-04-03] MEDS ORDERED: ALBUTEROL INHALER 90MCG/INH IH ONE (23:24)
[2020-04-03 23:37] VITALS: BP 162/79
[2020-04-04] VITALS (7 sets, daily range): BP systolic 132–170; BP diastolic 76–105
[2020-04-04] MEDS: INSULIN LISPRO 100 UNIT/ML 3ML SQ SCH ×7 (07:04→22:08)
[2020-04-04] MEDS: INSULIN GLARGINE 100 UNITS/ML 10 ML VIAL SQ SCH ×2 (07:04→21:39)
[2020-04-04 07:37] LABS: BASOPHILS % (AUTO) 0.8 % (0.0-5.0); HEMATOCRIT 33.7 % (36-48); MEAN CORPUSCULAR HEMOGLOBIN 26.7 pg (27.0-33.0); MEAN CORPUSCULAR HGB CONC 30.9 g/dL (32.0-36.0); MEAN CORPUSCULAR VOLUME 86.4 fL (79-99); MONOCYTES % (AUTO) 7.2 % (3.0-13.0); NEUTROPHILS % (AUTO) 77.4 % (40.0-77.0); PLATELET COUNT (AUTO) 337 K/uL (130-400); RED CELL DISTRIBUTION WIDTH 15.2 % (11.0-15.5); WHITE BLOOD COUNT (AUTO) 9.5 K/uL (4.8-10.8)
[2020-04-04 08:00] LABS: ALANINE AMINOTRANSFERASE 14 U/L (12-78); ALBUMIN 2.3 g/dL (3.5-5.0); ASPARTATE AMINOTRANSFERASE 18 U/L (10-37); BILIRUBIN,TOTAL 0.3 mg/dL (0.2-1.0); CARBON DIOXIDE 28 mmol/L (21-32); CHLORIDE 107 mmol/L (101-111); CREATININE 1.2 mg/dL (0.5-1.5); GLOMERULAR FILTR. RATE CALC 48 mL/min (>60); GLUCOSE,RANDOM 186 mg/dL (70-105); LACTATE DEHYDROGENASE 460 U/L (81-234); SODIUM SERUM 141 mmol/L (136-145); TOTAL PROTEIN, SERUM 6.1 g/dL (6.0-8.3); UREA NITROGEN, BLOOD 31 mg/dL (7-18)
[2020-04-04] MEDS: ASCORBIC ACID 500 MG TAB PO SCH (08:25)
[2020-04-04] MEDS: ZINC SULFATE 220 CAPSULE PO SCH (08:25)
[2020-04-04] MEDS: FAMOTIDINE 20MG TAB 20 MG TAB PO SCH (08:25)
[2020-04-04] MEDS: ENOXAPARIN SODIUM 80 MG/0.8 ML SQ SCH (08:27)
[2020-04-04] MEDS: METHYLPREDNISOLONE SOD SUCC 40MG/ML 1ML IVP SCH ×3 (08:29→21:30)
--- NOTE | 2020-04-04 18:42 | NUR ---
Pt alert, pt refused to go do her CT, Lisandro, BAND AID MACHINE OPERATOR for [employer] also tried to get pt to go, pt stated she couldn't breathe with the portable tank, CT is scheduled for 4am tomorrow, will continue to monitor
[2020-04-04] MEDS: ALBUTEROL INHALER 90MCG/INH IH SCH ×2 (21:00→21:42)
[2020-04-04] MEDS: LEVOFLOXACIN 250 MG/D5W 50ML 50 ML IVPB SCH (21:29)
[2020-04-04] MEDS: FUROSEMIDE 10 MG/ML 2ML VIAL IV SCH (21:30)
--- NOTE | 2020-04-04 23:35 | NUR ---
SOB Received pt from 4th floor on 100 non rebreather mask,pt gets sob at rest,saturatiing 80-90's,respiratory therapist carina aware.Pt sitting up 45 degress,cannot tolerate being prone she said.Will cont to monitor.
--- NOTE | 2020-04-04 23:43 | NUR ---
AYDEN matthews CHIEF OPERATOR HYDROFORMER notified per Suellen Rn re pt.s sob and anxiety.
[2020-04-04] MEDS ORDERED: MORPHINE SULFATE 2 MG/ML 1ML SYG IVP ONE (23:45)
[2020-04-05] VITALS (7 sets, daily range): BP systolic 100–196; BP diastolic 67–111
--- NOTE | 2020-04-05 00:23 | NUR ---
CALM Pt resting quietly in bed,not in distress,sat 94% this time.
[2020-04-05] MEDS: ALBUTEROL INHALER 90MCG/INH IH SCH ×6 (01:00→22:33)
--- NOTE | 2020-04-05 05:33 | NUR ---
BATHED Bed bath done per staff,pt got tachycardic and slightly sob.Cont on 02 at 100% non rebreather mask.
[2020-04-05] MEDS: INSULIN LISPRO 100 UNIT/ML 3ML SQ SCH ×7 (06:00→21:00)
[2020-04-05] MEDS: INSULIN GLARGINE 100 UNITS/ML 10 ML VIAL SQ SCH ×2 (06:22→22:24)
[2020-04-05] MEDS: METHYLPREDNISOLONE SOD SUCC 40MG/ML 1ML IVP SCH ×3 (08:51→20:14)
[2020-04-05] MEDS: FUROSEMIDE 10 MG/ML 2ML VIAL IV SCH ×2 (08:51→20:15)
[2020-04-05] MEDS: FAMOTIDINE 20MG TAB 20 MG TAB PO SCH (08:51)
[2020-04-05] MEDS: ZINC SULFATE 220 CAPSULE PO SCH (08:52)
[2020-04-05] MEDS: ASCORBIC ACID 500 MG TAB PO SCH (08:54)
[2020-04-05] MEDS: ENOXAPARIN SODIUM 80 MG/0.8 ML SQ SCH (08:54)
[2020-04-05 09:41] LABS: BASOPHILS % (AUTO) 0.7 % (0.0-5.0); LYMPHOCYTES % (AUTO) 6.4 % (21.0-51.0); MEAN CORPUSCULAR HEMOGLOBIN 26.7 pg (27.0-33.0); MEAN CORPUSCULAR HGB CONC 31.7 g/dL (32.0-36.0); MEAN CORPUSCULAR VOLUME 84.3 fL (79-99); MONOCYTES % (AUTO) 7.1 % (3.0-13.0); NEUTROPHILS % (AUTO) 78.2 % (40.0-77.0); NUCLEATED RED BLOOD CELLS 0.1 % (0.0-0.19); PLATELET COUNT (AUTO) 325 K/uL (130-400); RED BLOOD CELL COUNT(AUTO) 4.15 MIL/uL (4.00-5.50); RED CELL DISTRIBUTION WIDTH 15.4 % (11.0-15.5); WHITE BLOOD COUNT (AUTO) 14.9 K/uL (4.8-10.8)
[2020-04-05 09:57] LABS: ALBUMIN 2.5 g/dL (3.5-5.0); BILIRUBIN,TOTAL 0.5 mg/dL (0.2-1.0); CREATININE 1.2 mg/dL (0.5-1.5); CRP QUANTITATIVE 117.2 mg/L (0.00-9.0); POTASSIUM 3.5 mmol/L (3.5-5.1); TOTAL PROTEIN, SERUM 6.7 g/dL (6.0-8.3)
[2020-04-05] MEDS: LEVOFLOXACIN 250 MG/D5W 50ML 50 ML IVPB SCH (20:15)
[2020-04-05] MEDS: AMLODIPINE BESYLATE 5 MG TAB PO SCH (23:30)
[2020-04-05] MEDS ORDERED: AMLODIPINE BESYLATE 5 MG TAB ONE (23:32)
[2020-04-06] MEDS: ALBUTEROL INHALER 90MCG/INH IH SCH ×6 (01:00→21:12)
[2020-04-06 04:00] VITALS: BP 143/82
[2020-04-06] MEDS: INSULIN LISPRO 100 UNIT/ML 3ML SQ SCH ×7 (07:01→20:54)
[2020-04-06 07:45] LABS: HEMATOCRIT 35.4 % (36-48); LYMPHOCYTES % (AUTO) 4.8 % (21.0-51.0); MEAN CORPUSCULAR HEMOGLOBIN 26.6 pg (27.0-33.0); MEAN CORPUSCULAR HGB CONC 31.4 g/dL (32.0-36.0); MEAN CORPUSCULAR VOLUME 84.9 fL (79-99); MONOCYTES % (AUTO) 5.2 % (3.0-13.0); NEUTROPHILS % (AUTO) 80.7 % (40.0-77.0); NUCLEATED RED BLOOD CELLS 0.2 % (0.0-0.19); PLATELET COUNT (AUTO) 302 K/uL (130-400); RED BLOOD CELL COUNT(AUTO) 4.17 MIL/uL (4.00-5.50); RED CELL DISTRIBUTION WIDTH 15.9 % (11.0-15.5); WHITE BLOOD COUNT (AUTO) 15.3 K/uL (4.8-10.8)
[2020-04-06] MEDS: INSULIN GLARGINE 100 UNITS/ML 10 ML VIAL SQ SCH ×2 (08:01→20:57)
[2020-04-06 08:23] LABS: ALBUMIN 2.1 g/dL (3.5-5.0); BILIRUBIN,TOTAL 0.4 mg/dL (0.2-1.0); CREATININE 1.1 mg/dL (0.5-1.5); CRP QUANTITATIVE 148.1 mg/L (0.00-9.0); POTASSIUM 3.8 mmol/L (3.5-5.1); TOTAL PROTEIN, SERUM 6.3 g/dL (6.0-8.3)
[2020-04-06] MEDS: ZINC SULFATE 220 CAPSULE PO SCH (09:06)
[2020-04-06] MEDS: AMLODIPINE BESYLATE 5 MG TAB PO SCH (09:07)
[2020-04-06] MEDS: FAMOTIDINE 20MG TAB 20 MG TAB PO SCH (09:07)
[2020-04-06] MEDS: FUROSEMIDE 10 MG/ML 2ML VIAL IV SCH ×2 (09:07→20:54)
[2020-04-06] MEDS: ASCORBIC ACID 500 MG TAB PO SCH (09:07)
[2020-04-06] MEDS: METHYLPREDNISOLONE SOD SUCC 40MG/ML 1ML IVP SCH ×3 (09:07→20:54)
[2020-04-06 09:08] VITALS: BP 164/78
[2020-04-06] MEDS: ENOXAPARIN SODIUM 80 MG/0.8 ML SQ SCH (09:09)
[2020-04-06 12:02] VITALS: BP 171/73
[2020-04-06 16:40] VITALS: BP 133/86
[2020-04-06 20:00] VITALS: BP 149/78
[2020-04-06] MEDS ORDERED: AMLODIPINE BESYLATE 5 MG TAB PO SCH (20:00)
[2020-04-06] MEDS: LEVOFLOXACIN 250 MG/D5W 50ML 50 ML IVPB SCH (20:54)
[2020-04-07] VITALS (7 sets, daily range): BP systolic 122–164; BP diastolic 58–97
--- NOTE | 2020-04-07 01:00 | NUR ---
0005: Checked on patient received a reading of 84% 02 sat. Informed respiratory therapist as he was on the floor. He went in with me and said patient only needed to be sat up more and left. Readjusted patient in bed, high fowlers. 02 sat still in the 80's. Patient breathing up to 32. Patient encouraged to turn prone, refusing. Instructed of reason for wanting her to be turn prone. Patient still insisted she would not be able to breath. 0015: Margy HSIEH paged via answering service, called back within a few minutes. Informed her of patient's status at this time. Orders to turn patient prone. Informed her that patient refuses to turn. Still I attempted to turn patient prone, was able to lay on her left side and then started to complain of not being able to breath. Margy HSIEH called back again and informed me to let the patient know the rational for sleeping prone. Informed her I had already done that. Informed this patient refuses procedures has refused the CT of chest, and the VQ Scan. Margy HSIEH stated to call RT and let him know informed her that he had been here but informed will call him back. 0100: Have stayed with the patient still in the 80's 88, respirations in the 40's. Patient on high fowlers, encouraged to relax. Breathing down to 28. 0118: RT Pringle recall again, stated he would be up to check on patient. Addendum: 04/07/20 at 0124 by ONOFRE ALVARADO RN RN Amended: Links added.
[2020-04-07] MEDS: ALBUTEROL INHALER 90MCG/INH IH SCH ×6 (01:25→19:53)
--- NOTE | 2020-04-07 01:26 | NUR ---
RT Pino in to check on patient encouraged her to turn prone, patient refusing. He informed her that if her 02 sat does not improve she will have to be intubated, patient stated no. I informed her she is a full code, would have to have every thing possible for her to survive. Patient placed on her rt side, 02 sat at 89-90% with nonrebreather mask. Addendum: 04/07/20 at 0128 by ONOFRE ALVARADO RN RN Amended: Links added.
--- NOTE | 2020-04-07 03:00 | NUR ---
Patient 02 sat at 90, during my break, Reinier MCGEE and Rajwinder MILLIGAN had repositioned patient to sitting position. Patient called and started complaining of not being able to breath. 02 sat at 88, Rajwinder MILLIGAN and I went ahead and reposition on her rt side. 0330: Patient called again complaining of not being able to breath. Repositioned facing up with HOB elevated. Patient heart rate continued at 135, 145. 0345: Margy HSIEH paged via answering service, also rapid response called over head. RT in informed him Margy HSIEH wanted ABG'S . Informed her that patient's 02 at 70's HR in the 145, and b/p 211/170. Unable to understand Margy HSIEH on the phone. 0400: Margy HSIEH here to check on patient's patient still 02 sat still in the 70's 80's. Orders received to place a nitro patch 1 " to chest and administer Lasix 20 mg IVP. Orders to transfer patient to PCCU as soon as possible after Margy HSIEH had ABG results. 0415: Report called to Cony MCGEE informed her of what had transpired during the night. Also made aware of vital signs at this time, and 02 sat. Informed her of pending F/C to be inserted. 0430: Patient transferred via bed to room 232. Patient complaining of SOB, 02 AT 15 Liters when transferred NR mask. . .
[2020-04-07] MEDS ORDERED: NITROGLYCERIN 1GM/1 INCH PACKET TD ONE ×2 (03:57→04:00)
[2020-04-07] MEDS ORDERED: FUROSEMIDE 10 MG/ML 2ML VIAL ONE (03:59)
[2020-04-07] MEDS ORDERED: FUROSEMIDE 10 MG/ML 2ML VIAL IV ONE (04:00)
[2020-04-07 04:03] LABS: ABG BASE EXCESS 1.8 mmol/L (-2.0-3.0); ABG HCO3 28.7 mmol/L (21.0-28.0); ABG OXYGEN SATURATION 77.6 % (95.0-99.0); ABG PCO2 55 mmHg (32-45)
[2020-04-07 05:16] LABS: BASOPHILS % (AUTO) 0.2 % (0.0-5.0); LYMPHOCYTES % (AUTO) 3.2 % (21.0-51.0); MEAN CORPUSCULAR HEMOGLOBIN 26.9 pg (27.0-33.0); MEAN CORPUSCULAR HGB CONC 31.1 g/dL (32.0-36.0); MEAN CORPUSCULAR VOLUME 86.7 fL (79-99); MONOCYTES % (AUTO) 4.9 % (3.0-13.0); NEUTROPHILS % (AUTO) 81.4 % (40.0-77.0); NUCLEATED RED BLOOD CELLS 0.3 % (0.0-0.19); PLATELET COUNT (AUTO) 369 K/uL (130-400); RED BLOOD CELL COUNT(AUTO) 4.27 MIL/uL (4.00-5.50); RED CELL DISTRIBUTION WIDTH 16.3 % (11.0-15.5); WHITE BLOOD COUNT (AUTO) 18.7 K/uL (4.8-10.8)
[2020-04-07 05:45] LABS: ALBUMIN 2.3 g/dL (3.5-5.0); BILIRUBIN,TOTAL 0.6 mg/dL (0.2-1.0); CREATININE 1.4 mg/dL (0.5-1.5); POTASSIUM 3.7 mmol/L (3.5-5.1); TOTAL PROTEIN, SERUM 6.7 g/dL (6.0-8.3)
[2020-04-07] MEDS: INSULIN GLARGINE 100 UNITS/ML 10 ML VIAL SQ SCH ×2 (05:51→20:52)
[2020-04-07] MEDS: INSULIN LISPRO 100 UNIT/ML 3ML SQ SCH ×7 (05:52→20:52)
[2020-04-07] MEDS: FAMOTIDINE 20MG TAB 20 MG TAB PO SCH (08:35)
[2020-04-07] MEDS: METHYLPREDNISOLONE SOD SUCC 40MG/ML 1ML IVP SCH ×3 (08:35→20:51)
[2020-04-07] MEDS: AMLODIPINE BESYLATE 5 MG TAB PO SCH (08:35)
[2020-04-07] MEDS: ASCORBIC ACID 500 MG TAB PO SCH (08:35)
[2020-04-07] MEDS: ZINC SULFATE 220 CAPSULE PO SCH (08:35)
[2020-04-07] MEDS: ENOXAPARIN SODIUM 80 MG/0.8 ML SQ SCH (08:36)
--- NOTE | 2020-04-07 10:00 | NUR ---
RESTING IN BED WITH HOB AT 30 DEGREES, RESP.'S EVEN AND UNLABORED. EYES CLOSED. BIPAP IN PLACE. CALL LIGHT WITHIN REACH. BLINDS OPEN.
--- NOTE | 2020-04-07 13:25 | NUR ---
PT. C/O SOB. O2 SATURATION PER CONTINUOUS PULSE OXIMETRY 81%, HR-142. ATTEMPTED TO LAY PT. IN PRONE POSITION. C/O INCREASED SOB IN PRONE POSITION; STATES," I CAN'T BREATHE. I CAN'T BREATHE." REPOSITIONED TO LEFT SIDE-LYING POSITION AND COACHED ON BREATHING. O2 SATURATION INCREASED TO 88%. NEW PIV STARTED TO RIGHT HAND ON FIRST ATTEMPT USING ASEPTIC TECHNIQUE.
--- NOTE | 2020-04-07 13:55 | NUR ---
RESTING IN BED WITH HOB AT SEMI-OROPEZA'S POSITION PER PT.'S REQUEST. BIPAP CONTINUES IN PLACE. CONT. PULSE OXIMETER, 93%, HR-113. CALL LIGHT WITHIN REACH.
[2020-04-07 14:51] LABS: ABG BASE EXCESS 4.8 mmol/L (-2.0-3.0); ABG HCO3 33.1 mmol/L (21.0-28.0); ABG OXYGEN SATURATION 81.1 % (95.0-99.0); ABG PCO2 66 mmHg (32-45)
--- NOTE | 2020-04-07 14:58 | NUR ---
ABG RESULTS TO Anirudh MCKEON NP. NO NEW ORDERS AT THIS TIME.
--- NOTE | 2020-04-07 15:14 | NUR ---
SPOKE WITH PT. RE:CODE STATUS. PT. STATES WANTS "EVERYTHING DONE [BARBADIAN]" INCLUDING CPR AND INTUBATION IF NEEDED.
--- NOTE | 2020-04-07 15:17 | NUR ---
RECEIVED ORDER FOR INTUBATION FROM Anirudh MCKEON NP.
--- NOTE | 2020-04-07 15:23 | NUR ---
NOTIFIED Anirudh MCKEON NP, ANESTHESIA NOT AVAILABLE TO INTUBATE AT THIS TIME.
--- NOTE | 2020-04-07 15:58 | NUR ---
DR. DESAI, ED PHYSICIAN, HERE TO INTUBATE PT.
--- NOTE | 2020-04-07 16:02 | NUR ---
DR. DESAI SPEAKING WITH DR. BEYER VIA TELEPHONE RE:PT. STATUS AND INTUBATION ORDER. PER DR. DESAI, ORDER TO INTUBATE ON HOLD.
--- NOTE | 2020-04-07 18:39 | NUR ---
RESTING IN BED WITH HOB AT 30 DEGREES, RESP.'S EVEN AND UNLABORED. BIPAP IN PLACE. O2 SAT.-93% PER CONT. PULSE OXIMETER AT BEDSIDE. CALL LIGHT WITHIN REACH. BLINDS OPEN.
--- NOTE | 2020-04-07 18:48 | NUR ---
F/C INSERTION ATTEMPTED BY Elsy CANELA RN. UNSUCCESSFUL. PT. UNABLE TO LAY FLAT.
[2020-04-07] MEDS: LEVOFLOXACIN 250 MG/D5W 50ML 50 ML IVPB SCH (20:52)
[2020-04-08] MEDS: ALBUTEROL INHALER 90MCG/INH IH SCH ×6 (00:25→20:01)
[2020-04-08] MEDS: DIPHENHYDRAMINE HCL 25 MG CAPSULE PO PRN (01:41)
[2020-04-08 03:00] VITALS: BP 135/87
[2020-04-08 05:02] LABS: BASOPHILS % (AUTO) 1.1 % (0.0-5.0); HEMATOCRIT 34.7 % (36-48); LYMPHOCYTES % (AUTO) 3.9 % (21.0-51.0); MEAN CORPUSCULAR HEMOGLOBIN 26.6 pg (27.0-33.0); MEAN CORPUSCULAR HGB CONC 30.8 g/dL (32.0-36.0); MEAN CORPUSCULAR VOLUME 86.1 fL (79-99); MONOCYTES % (AUTO) 5.5 % (3.0-13.0); NEUTROPHILS % (AUTO) 79.5 % (40.0-77.0); NUCLEATED RED BLOOD CELLS 0.2 % (0.0-0.19); PLATELET COUNT (AUTO) 258 K/uL (130-400); RED BLOOD CELL COUNT(AUTO) 4.03 MIL/uL (4.00-5.50)
[2020-04-08 05:20] LABS: ALBUMIN 2.3 g/dL (3.5-5.0); BILIRUBIN,TOTAL 0.7 mg/dL (0.2-1.0); CREATININE 1.4 mg/dL (0.5-1.5); CRP QUANTITATIVE 73.9 mg/L (0.00-9.0); POTASSIUM 3.6 mmol/L (3.5-5.1); TOTAL PROTEIN, SERUM 6.5 g/dL (6.0-8.3)
[2020-04-08 05:22] LABS: PLATELET MORPHOLOGY LARGE PLTS PRESENT
[2020-04-08] MEDS: METHYLPREDNISOLONE SOD SUCC 40MG/ML 1ML IVP SCH ×3 (05:24→20:33)
[2020-04-08] MEDS: INSULIN LISPRO 100 UNIT/ML 3ML SQ SCH ×7 (06:40→20:20)
[2020-04-08] MEDS: INSULIN GLARGINE 100 UNITS/ML 10 ML VIAL SQ SCH ×2 (06:47→20:21)
[2020-04-08 08:00] VITALS: BP 168/80
[2020-04-08] MEDS: FAMOTIDINE 20MG TAB 20 MG TAB PO SCH (09:24)
[2020-04-08] MEDS: ZINC SULFATE 220 CAPSULE PO SCH (09:24)
[2020-04-08] MEDS: AMLODIPINE BESYLATE 5 MG TAB PO SCH (09:24)
[2020-04-08] MEDS: ASCORBIC ACID 500 MG TAB PO SCH (09:24)
[2020-04-08] MEDS: ENOXAPARIN SODIUM 80 MG/0.8 ML SQ SCH (09:25)
[2020-04-08 11:30] VITALS: BP 153/97
--- NOTE | 2020-04-08 13:00 | NUR ---
SPOKE WITH PT. RE:ORDER FOR F/C INSERTION AND NEED FOR PLACEMENT DUE TO INCONTINENT VOIDING; WELL EXERTIONAL SOB WHEN CARE RENDERED FOR INCONTINENCE. PT. AGREED TO F/C PLACEMENT. F/C INSERTED ON FIRST ATTEMPT USING STERILE TECHNIQUE; Mercedes DORAN, PCP PRESENT DURING F/C INSERTION. PT. TOLERATED WELL W/O C/O.
--- NOTE | 2020-04-08 13:16 | NUR ---
RDSCREEN - LOS X 8 Pt positive for COVID-19 PNA. Pt tolerates 75gm Heart healthy diet order, however with decreased appetite today as per RN. Intubation held. BiPap in place. Vitamin C, Zinc supplementation in place. WBC 15.0, BUN 39, GFR 40, Alb 2.3. Recommend Glucerna TID 60mL ProMod QD Continue diet order as medically feasible. RD to continue to monitor. Please notify as additional nutrition concerns arise. Thank you.
--- NOTE | 2020-04-08 14:33 | NUR ---
SITTING UP IN BED WATCHING TELEVISION, RESP.'S EVEN AND UNLABORED. BIPAP IN PLACE. O2 SAT. 96% PER CONTINUOUS PULSE OXIMETER AT BEDSIDE. CALL LIGHT WITHIN REACH. BLINDS OPEN.
[2020-04-08 15:30] VITALS: BP 164/58
--- NOTE | 2020-04-08 18:33 | NUR ---
PT. YELLING. UPON ENTERING ROOM, PT. FOUND TO HAVE REMOVED BIPAP, SITTING UP IN BED; CLIPS INTACT, PT. PULLED OFF MASK. O2 SAT. PER CONTINUOUS PULSE OXIMETER 52%. BIPAP REAPPLIED. O2 SATURATION INCREASED TO 88% WITHIN A FEW SECONDS AND COACHING PT. ON CONTROLLED BREATHING. BED LOW, SIDE RAILS UP X3. CALL LIGHT WITHIN REACH. BLINDS TO ROOM REMAIN OPEN.
--- NOTE | 2020-04-08 18:39 | NUR ---
SITTING UP IN BED WITH BIPAP IN PLACE. O2 SAT-93% PER CONTINUOUS PULSE OXIMETER. CALL LIGHT WITHIN REACH.
[2020-04-08 19:00] VITALS: BP 112/49
[2020-04-08] MEDS: LEVOFLOXACIN 250 MG/D5W 50ML 50 ML IVPB SCH (20:33)
[2020-04-08 23:00] VITALS: BP 178/94
[2020-04-09] VITALS (7 sets, daily range): BP systolic 124–189; BP diastolic 76–94
[2020-04-09] MEDS: ALBUTEROL INHALER 90MCG/INH IH SCH ×6 (00:40→19:57)
[2020-04-09 03:37] LABS: ABG BASE EXCESS 6.3 mmol/L (-2.0-3.0); ABG HCO3 33.7 mmol/L (21.0-28.0); ABG OXYGEN SATURATION 86.1 % (95.0-99.0); ABG PCO2 60 mmHg (32-45)
[2020-04-09] MEDS: METHYLPREDNISOLONE SOD SUCC 40MG/ML 1ML IVP SCH ×3 (04:57→20:54)
[2020-04-09] MEDS: INSULIN LISPRO 100 UNIT/ML 3ML SQ SCH ×7 (05:42→20:55)
[2020-04-09] MEDS: INSULIN GLARGINE 100 UNITS/ML 10 ML VIAL SQ SCH ×2 (06:01→20:55)
[2020-04-09 06:16] LABS: BASOPHILS % (AUTO) 0.7 % (0.0-5.0); HEMATOCRIT 34.3 % (36-48); LYMPHOCYTES % (AUTO) 3.2 % (21.0-51.0); MEAN CORPUSCULAR HEMOGLOBIN 26.9 pg (27.0-33.0); MEAN CORPUSCULAR HGB CONC 31.2 g/dL (32.0-36.0); MEAN CORPUSCULAR VOLUME 86.2 fL (79-99); MONOCYTES % (AUTO) 5.8 % (3.0-13.0); NEUTROPHILS % (AUTO) 80.3 % (40.0-77.0); NUCLEATED RED BLOOD CELLS 0.1 % (0.0-0.19); PLATELET COUNT (AUTO) 240 K/uL (130-400); RED BLOOD CELL COUNT(AUTO) 3.98 MIL/uL (4.00-5.50); WHITE BLOOD COUNT (AUTO) 13.6 K/uL (4.8-10.8)
[2020-04-09 06:49] LABS: B-TYPE NATRIURETIC PEPTIDE 49 pg/mL (0-100)
[2020-04-09 06:58] LABS: ALBUMIN 2.4 g/dL (3.5-5.0); BILIRUBIN,TOTAL 0.7 mg/dL (0.2-1.0); CREATININE 1.1 mg/dL (0.5-1.5); CRP QUANTITATIVE 38.2 mg/L (0.00-9.0); POTASSIUM 3.7 mmol/L (3.5-5.1); TOTAL PROTEIN, SERUM 6.3 g/dL (6.0-8.3)
[2020-04-09] MEDS: ZINC SULFATE 220 CAPSULE PO SCH (09:22)
[2020-04-09] MEDS: ASCORBIC ACID 500 MG TAB PO SCH (09:22)
[2020-04-09] MEDS: AMLODIPINE BESYLATE 5 MG TAB PO SCH (09:23)
[2020-04-09] MEDS: ENOXAPARIN SODIUM 80 MG/0.8 ML SQ SCH (09:23)
[2020-04-09] MEDS: FAMOTIDINE 20MG TAB 20 MG TAB PO SCH (09:25)
--- NOTE | 2020-04-09 15:25 | NUR ---
SITTING UP IN BED. ASLEEP. BIPAP IN PLACE. O2 SAT. PER CONTINUOUS PULSE OXIMETER 95%, HR-95. RESP.'S EVEN AND UNLABORED. CALL LIGHT WITHIN REACH. ROOM BLINDS OPEN.
[2020-04-09] MEDS: LEVOFLOXACIN 250 MG/D5W 50ML 50 ML IVPB SCH (20:53)
[2020-04-10] MEDS: ALBUTEROL INHALER 90MCG/INH IH SCH ×6 (00:06→21:42)
[2020-04-10 03:00] VITALS: BP 137/72
[2020-04-10 04:14] LABS: ABG BASE EXCESS 5.9 mmol/L (-2.0-3.0); ABG HCO3 33.2 mmol/L (21.0-28.0); ABG OXYGEN SATURATION 86.2 % (95.0-99.0); ABG PCO2 59 mmHg (32-45)
[2020-04-10 04:46] LABS: ALBUMIN 2.4 g/dL (3.5-5.0); BILIRUBIN,DIRECT 0.2 mg/dL (0.0-0.3); BILIRUBIN,TOTAL 0.8 mg/dL (0.2-1.0); CREATININE 1.1 mg/dL (0.5-1.5); CRP QUANTITATIVE 25.7 mg/L (0.00-9.0); MAGNESIUM 2.4 mg/dL (1.80-2.40); POTASSIUM 3.7 mmol/L (3.5-5.1); TOTAL PROTEIN, SERUM 6.5 g/dL (6.0-8.3)
[2020-04-10 04:48] LABS: BASOPHILS % (AUTO) 0.9 % (0.0-5.0); HEMATOCRIT 34.7 % (36-48); LYMPHOCYTES % (AUTO) 2.9 % (21.0-51.0); MEAN CORPUSCULAR HEMOGLOBIN 26.4 pg (27.0-33.0); MEAN CORPUSCULAR HGB CONC 30.5 g/dL (32.0-36.0); MEAN CORPUSCULAR VOLUME 86.5 fL (79-99); MONOCYTES % (AUTO) 4.4 % (3.0-13.0); NEUTROPHILS % (AUTO) 82.7 % (40.0-77.0); PLATELET COUNT (AUTO) 257 K/uL (130-400); RED BLOOD CELL COUNT(AUTO) 4.01 MIL/uL (4.00-5.50); RED CELL DISTRIBUTION WIDTH 16.1 % (11.0-15.5); WHITE BLOOD COUNT (AUTO) 15.1 K/uL (4.8-10.8)
[2020-04-10] MEDS: INSULIN GLARGINE 100 UNITS/ML 10 ML VIAL SQ SCH ×2 (05:34→21:42)
[2020-04-10] MEDS: INSULIN LISPRO 100 UNIT/ML 3ML SQ SCH ×7 (05:34→21:00)
[2020-04-10] MEDS: METHYLPREDNISOLONE SOD SUCC 40MG/ML 1ML IVP SCH ×3 (05:35→21:41)
[2020-04-10 08:00] VITALS: BP 184/106
[2020-04-10] MEDS: AMLODIPINE BESYLATE 5 MG TAB PO SCH (08:52)
[2020-04-10] MEDS: FAMOTIDINE 20MG TAB 20 MG TAB PO SCH (08:53)
[2020-04-10] MEDS: ASCORBIC ACID 500 MG TAB PO SCH (08:53)
[2020-04-10] MEDS: ZINC SULFATE 220 CAPSULE PO SCH (08:53)
[2020-04-10] MEDS: ENOXAPARIN SODIUM 80 MG/0.8 ML SQ SCH (08:54)
--- NOTE | 2020-04-10 10:30 | NUR ---
RESTING IN BED WITH EYES CLOSED, RESP.'S EVEN AND UNLABORED. O2 SAT.-95% PER CONTINUOUS PULSE OXIMETER AT BEDSIDE. CALL LIGHT WITHIN REACH. ROOM BLINDS OPEN.
[2020-04-10 11:30] VITALS: BP 141/86
[2020-04-10] MEDS: DIPHENHYDRAMINE HCL 25 MG CAPSULE PO PRN ×2 (12:06→18:13)
--- NOTE | 2020-04-10 14:26 | NUR ---
SITTING UP IN BED WITH EYES CLOSED, RESP.'S EVEN AND UNLABORED. O2 SAT PER CONT. PULSE OX. - 99%. CALL LIGHT WITHIN REACH. ROOM BLINDS OPEN.
[2020-04-10 15:30] VITALS: BP 170/80
[2020-04-10] MEDS ORDERED: HYDRALAZINE HCL 20 MG/ML VIAL IV PRN (17:00)
[2020-04-10] MEDS ORDERED: METOPROLOL TARTRATE 1 MG/ML 5ML VIAL IV PRN (18:30)
[2020-04-10 19:21] VITALS: BP 158/80
[2020-04-10] MEDS: LEVOFLOXACIN 250 MG/D5W 50ML 50 ML IVPB SCH (21:41)
[2020-04-10 23:06] VITALS: BP 165/98
--- NOTE | 2020-04-11 01:00 | NUR ---
LATE ENTRY PATIENT AAO SITTING UP IN BED. BREATHING REGULAR AND TACHYPNEIC ON BIPAP. NON-LABORED. DENIES SOB. PATENT GIVEN MDI DOSE THEN PATIENT GIVEN WATER. WITH REMOVAL OF BIPAP FOR SHORT AMOUNT OF TIME PATIENT SATURATIONS DECLINED TON 82-86% ON CONTINUOUS PULSE OXIMETRY. BLOOD NOTED ON GOWN NOTED FROM SUBQ INJECTION SITE. DRESSING APPLIED. NO ACUTE SIGNS OR SYMPTOMS OF DISTRESS NOTED.CALL LIGHT IN REACH.
[2020-04-11] MEDS: ALBUTEROL INHALER 90MCG/INH IH SCH ×6 (01:21→20:41)
[2020-04-11 03:17] VITALS: BP 149/77
[2020-04-11 04:02] LABS: ABG BASE EXCESS 6.8 mmol/L (-2.0-3.0); ABG OXYGEN SATURATION 92.4 % (95.0-99.0); ABG PCO2 59 mmHg (32-45)
[2020-04-11] MEDS: METHYLPREDNISOLONE SOD SUCC 40MG/ML 1ML IVP SCH ×3 (04:54→20:41)
[2020-04-11] MEDS: INSULIN LISPRO 100 UNIT/ML 3ML SQ SCH ×7 (07:19→20:39)
[2020-04-11] MEDS: INSULIN GLARGINE 100 UNITS/ML 10 ML VIAL SQ SCH ×2 (07:20→20:38)
[2020-04-11 08:00] VITALS: BP 166/90
[2020-04-11] MEDS: ASCORBIC ACID 500 MG TAB PO SCH (09:52)
[2020-04-11] MEDS: AMLODIPINE BESYLATE 5 MG TAB PO SCH (09:52)
[2020-04-11] MEDS: FAMOTIDINE 20MG TAB 20 MG TAB PO SCH (09:52)
[2020-04-11] MEDS: ZINC SULFATE 220 CAPSULE PO SCH (09:53)
[2020-04-11] MEDS: ENOXAPARIN SODIUM 80 MG/0.8 ML SQ SCH (09:53)
[2020-04-11 11:30] VITALS: BP 177/94
--- NOTE | 2020-04-11 15:00 | NUR ---
PATIENT RESTING COMFORTABLY THROUGH OUT THE DAY. PATIENT IS SATTING AT 95% ON BIPAP. NO QUEATIONS OR CONCERNS AT THIS TIME.
[2020-04-11 15:30] VITALS: BP 181/100
[2020-04-11 19:37] VITALS: BP 155/78
--- NOTE | 2020-04-11 20:39 | NUR ---
PT. STATES SHE DID NOT HAVE DINNER AND DOESN'T PLAN ON EATING ANYTHING TONIGHT. LANTUS INSULIN HELD.
[2020-04-11 23:40] VITALS: BP 165/96
[2020-04-12] VITALS (9 sets, daily range): BP systolic 120–184; BP diastolic 71–112
[2020-04-12 03:39] LABS: ABG BASE EXCESS 4.1 mmol/L (-2.0-3.0); ABG HCO3 32.8 mmol/L (21.0-28.0); ABG OXYGEN SATURATION 72.3 % (95.0-99.0); ABG PCO2 68 mmHg (32-45)
[2020-04-12] MEDS: ALBUTEROL INHALER 90MCG/INH IH SCH ×5 (04:13→17:39)
--- NOTE | 2020-04-12 04:33 | NUR ---
PATIENT HERAT RATE HAD BEEN IN THE LOW 100'S WITH OXYGEN SATURATION BETWEEN 88%-90% ON THE BIPAP OF 80% FIO2. ABG RESULTS GIVEN TO THIS NURSE AND BIPAP SETTINGS CHANGED BACK TO 100% FIO2. RESPIRATORY WANTS VENTILATION CHANGED DURING DAYSHIFT TO 20. PATIENT IS NOW AT 90M HEART RATE AND OXYGEN AT 96%. . +
[2020-04-12] MEDS: METHYLPREDNISOLONE SOD SUCC 40MG/ML 1ML IVP SCH ×5 (05:21→20:37)
[2020-04-12] MEDS: INSULIN LISPRO 100 UNIT/ML 3ML SQ SCH ×7 (05:21→20:34)
[2020-04-12] MEDS: INSULIN GLARGINE 100 UNITS/ML 10 ML VIAL SQ SCH ×2 (05:21→20:35)
[2020-04-12 05:47] LABS: BASOPHILS % (AUTO) 0.5 % (0.0-5.0); HEMATOCRIT 33.4 % (36-48); LYMPHOCYTES % (AUTO) 2.3 % (21.0-51.0); MEAN CORPUSCULAR HEMOGLOBIN 26.8 pg (27.0-33.0); MEAN CORPUSCULAR HGB CONC 30.5 g/dL (32.0-36.0); MEAN CORPUSCULAR VOLUME 87.7 fL (79-99); MONOCYTES % (AUTO) 4.1 % (3.0-13.0); NEUTROPHILS % (AUTO) 86.9 % (40.0-77.0); PLATELET COUNT (AUTO) 204 K/uL (130-400); RED BLOOD CELL COUNT(AUTO) 3.81 MIL/uL (4.00-5.50); RED CELL DISTRIBUTION WIDTH 16.3 % (11.0-15.5); WHITE BLOOD COUNT (AUTO) 16.7 K/uL (4.8-10.8)
[2020-04-12 06:43] LABS: ALBUMIN 2.6 g/dL (3.5-5.0); BILIRUBIN,TOTAL 0.8 mg/dL (0.2-1.0); CREATININE 1.2 mg/dL (0.5-1.5); MAGNESIUM 2.6 mg/dL (1.80-2.40); POTASSIUM 4.3 mmol/L (3.5-5.1); TOTAL PROTEIN, SERUM 6.1 g/dL (6.0-8.3)
[2020-04-12] MEDS: FAMOTIDINE 20MG TAB 20 MG TAB PO SCH (09:38)
[2020-04-12] MEDS: AMLODIPINE BESYLATE 5 MG TAB PO SCH (09:38)
[2020-04-12] MEDS: ZINC SULFATE 220 CAPSULE PO SCH (09:38)
[2020-04-12] MEDS: ASCORBIC ACID 500 MG TAB PO SCH (09:38)
[2020-04-12] MEDS: ENOXAPARIN SODIUM 80 MG/0.8 ML SQ SCH (09:39)
[2020-04-12] MEDS: FUROSEMIDE 10 MG/ML 4ML VIAL IV SCH ×2 (12:24→22:15)
[2020-04-12] MEDS ORDERED: DOXYCYCLINE 100MG+NS 250ML 250 ML IV SCH ×2 (12:30→15:00)
[2020-04-12] MEDS ORDERED: RENAL DOSE IV SCH (12:30)
[2020-04-12] MEDS ORDERED: ZOSYN 3.375GM+NS 50ML 50 ML IV SCH (13:00)
[2020-04-12] MEDS: PHARMACY COMMUNICATION MISC SCH ×2 (13:45→13:48)
--- NOTE | 2020-04-12 17:30 | NUR ---
SPOKE WITH PT. AND INFORMED RE:CONVALESCENT PLASMA ORDERED; FUNCTION AND RATIONALE. PT. VERBALIZED UNDERSTANDING OF CONVALESCENT PLASMA BUT STATES WILL "THINK ABOUT IT."
[2020-04-12] MEDS: DOXYCYCLINE 100MG+NS 250ML 250 ML IV SCH ×2 (20:00→20:41)
[2020-04-12] MEDS: METOPROLOL TARTRATE 1 MG/ML 5ML VIAL IV SCH (20:00)
[2020-04-12] MEDS: IPRATROPIUM/ALBUTEROL SULFATE 3 ML SOLUTION IH SCH (23:31)
[2020-04-13] VITALS (7 sets, daily range): BP systolic 102–173; BP diastolic 61–105
[2020-04-13] MEDS: METOPROLOL TARTRATE 1 MG/ML 5ML VIAL IV SCH ×6 (00:31→22:03)
[2020-04-13 05:09] LABS: ABG BASE EXCESS 3.4 mmol/L (-2.0-3.0); ABG HCO3 31.7 mmol/L (21.0-28.0); ABG OXYGEN SATURATION 93.4 % (95.0-99.0); ABG PCO2 65 mmHg (32-45)
[2020-04-13 05:16] LABS: HEMATOCRIT 32.3 % (36-48); MEAN CORPUSCULAR HEMOGLOBIN 26.5 pg (27.0-33.0); MEAN CORPUSCULAR HGB CONC 30.7 g/dL (32.0-36.0); MEAN CORPUSCULAR VOLUME 86.4 fL (79-99); RED BLOOD CELL COUNT(AUTO) 3.74 MIL/uL (4.00-5.50); RED CELL DISTRIBUTION WIDTH 16.1 % (11.0-15.5); WHITE BLOOD COUNT (AUTO) 16.7 K/uL (4.8-10.8)
[2020-04-13 05:30] LABS: POTASSIUM 4.1 mmol/L (3.5-5.1)
[2020-04-13 05:32] LABS: PARTIAL THROMBOPLASTIN TIME 30.2 SEC (26.3-35.5); PROTHROMBIN TIME 10.8 SEC (9.6-11.6)
[2020-04-13] MEDS: IPRATROPIUM/ALBUTEROL SULFATE 3 ML SOLUTION IH SCH ×3 (05:39→18:00)
[2020-04-13] MEDS: INSULIN LISPRO 100 UNIT/ML 3ML SQ SCH ×7 (06:45→21:00)
[2020-04-13 06:46] LABS: CREATININE 1.3 mg/dL (0.5-1.5)
--- NOTE | 2020-04-13 07:40 | NUR ---
PT. REMOVED BIPAP AND PULSE OX. PROBE. BIPAP REAPPLIED WELL PULSE OX. PROBE. ONCE PULSE OXIMETER BEGAN TO REGISTER A READING, O2 SATURATION 81%. PT. TACHYPNEIC, STATING," I CAN'T BREATHE." WHEN ASKED WHY SHE HAD REMOVED THE BIPAP, PT. STATES," I DON'T KNOW." INSTRUCTED PT. TO REFRAIN FROM REMOVING BIPAP OR PULSE OXIMETER, VERBALIZED UNDERSTANDING AND STATES SHE WON'T DO IT AGAIN. CALL LIGHT WITHIN REACH. ROOM BLINDS OPEN.
[2020-04-13] MEDS: DOXYCYCLINE 100MG+NS 250ML 250 ML IV SCH ×2 (10:03→22:03)
[2020-04-13] MEDS: METHYLPREDNISOLONE SOD SUCC 40MG/ML 1ML IVP SCH ×2 (10:04→22:03)
[2020-04-13] MEDS: ZINC SULFATE 220 CAPSULE PO SCH (10:06)
[2020-04-13] MEDS: INSULIN GLARGINE 100 UNITS/ML 10 ML VIAL SQ SCH ×2 (10:06→22:04)
[2020-04-13] MEDS: AMLODIPINE BESYLATE 5 MG TAB PO SCH (10:06)
[2020-04-13] MEDS: FAMOTIDINE 20MG TAB 20 MG TAB PO SCH (10:06)
[2020-04-13] MEDS: ASCORBIC ACID 500 MG TAB PO SCH (10:06)
[2020-04-13] MEDS: ENOXAPARIN SODIUM 100 MG/1 ML SQ SCH (10:07)
--- NOTE | 2020-04-13 10:22 | NUR ---
Jaison SALAZAR NP, IN ROOM SPEAKING WITH PT. RE:PLAN OF CARE.
--- NOTE | 2020-04-13 11:35 | NUR ---
RESTING IN BED WITH HOB AT SEMI-OROPEZA'S POSITION, RESP.'S EVEN AND UNLABORED. PT. ASLEEP IN SITTING POSITION. EYES CLOSED. BIPAP IN PLACE. CALL LIGHT WITHIN REACH. O2 SAT.-96%, P-84 PER CONTINUOUS PULSE OXIMETER AT BEDSIDE. BLINDS OPEN.
[2020-04-13] MEDS: FUROSEMIDE 10 MG/ML 4ML VIAL IV SCH ×2 (11:55→23:30)
[2020-04-13] MEDS: DIPHENHYDRAMINE HCL 25 MG CAPSULE PO PRN (23:30)
[2020-04-14] VITALS (23 sets, daily range): BP systolic 71–136; BP diastolic 33–70
[2020-04-14 00:15] LABS: ABG BASE EXCESS 2.6 mmol/L (-2.0-3.0); ABG HCO3 31.9 mmol/L (21.0-28.0); ABG OXYGEN SATURATION 73.2 % (95.0-99.0); ABG PCO2 71 mmHg (32-45)
[2020-04-14] MEDS ORDERED: PROPOFOL 1000 MG/100 ML 100 ML IV ONE (00:47)
[2020-04-14] MEDS ORDERED: FENTANYL 2500MCG+NS 250ML 250 ML IV ONE ×2 (00:53→16:15)
--- NOTE | 2020-04-14 01:05 | NUR ---
Notified Harlan Cobb regarding patient oxygen level in 70's. He ordered stat ABG and Chest Xray. ABG results was reported to him and he decided that he is gonna intubate patient. Patient intubated by ER doctor Deny and DR. Claros and assisted by ER nurses at 0051 and was transferred to room 214 at 0100
[2020-04-14] MEDS ORDERED: FUROSEMIDE 10 MG/ML 4ML VIAL IV SCH (01:15)
[2020-04-14] MEDS ORDERED: PROPOFOL 1000 MG/100 ML IV PRN ×2 (01:15→01:30)
[2020-04-14] MEDS ORDERED: FENTANYL CITRATE PF 0.05 MG/ML 1,000 MCG in SODIUM CHLORIDE 0.9% 100 ML IVPB PRN (01:30)
[2020-04-14 01:42] LABS: BASOPHILS % (AUTO) 0.4 % (0.0-5.0); HEMATOCRIT 32.2 % (36-48); LYMPHOCYTES % (AUTO) 1.5 % (21.0-51.0); MEAN CORPUSCULAR HEMOGLOBIN 26.5 pg (27.0-33.0); MEAN CORPUSCULAR HGB CONC 30.7 g/dL (32.0-36.0); MEAN CORPUSCULAR VOLUME 86.3 fL (79-99); MONOCYTES % (AUTO) 2.3 % (3.0-13.0); NEUTROPHILS % (AUTO) 88.9 % (40.0-77.0); NUCLEATED RED BLOOD CELLS 0.2 % (0.0-0.19); PLATELET COUNT (AUTO) 220 K/uL (130-400); RED BLOOD CELL COUNT(AUTO) 3.73 MIL/uL (4.00-5.50); RED CELL DISTRIBUTION WIDTH 16.4 % (11.0-15.5); WHITE BLOOD COUNT (AUTO) 20.6 K/uL (4.8-10.8)
[2020-04-14 01:47] LABS: CREATININE 1.4 mg/dL (0.5-1.5); POTASSIUM 3.8 mmol/L (3.5-5.1)
[2020-04-14] MEDS ORDERED: PROPOFOL 1000 MG/100 ML 100 ML IV SCH (02:00)
[2020-04-14 02:33] LABS: ABG BASE EXCESS 4.7 mmol/L (-2.0-3.0); ABG HCO3 29.5 mmol/L (21.0-28.0); ABG OXYGEN SATURATION 93.2 % (95.0-99.0); ABG PCO2 44 mmHg (32-45)
[2020-04-14] MEDS: METOPROLOL TARTRATE 1 MG/ML 5ML VIAL IV SCH ×5 (03:42→15:58)
[2020-04-14] MEDS: PROPOFOL 1000 MG/100 ML 100 ML IV SCH ×3 (04:16→15:14)
[2020-04-14 04:34] LABS: ABG BASE EXCESS 7.2 mmol/L (-2.0-3.0); ABG HCO3 31.9 mmol/L (21.0-28.0); ABG OXYGEN SATURATION 83.5 % (95.0-99.0); ABG PCO2 45 mmHg (32-45)
[2020-04-14] MEDS: IPRATROPIUM/ALBUTEROL SULFATE 3 ML SOLUTION IH SCH ×4 (05:35→17:40)
[2020-04-14] MEDS: INSULIN LISPRO 100 UNIT/ML 3ML SQ SCH ×6 (05:36→17:00)
[2020-04-14] MEDS: INSULIN GLARGINE 100 UNITS/ML 10 ML VIAL SQ SCH (05:46)
[2020-04-14 08:12] LABS: ABG BASE EXCESS 8.7 mmol/L (-2.0-3.0); ABG HCO3 31.9 mmol/L (21.0-28.0); ABG PCO2 39 mmHg (32-45)
[2020-04-14 08:44] LABS: BASOPHILS % (AUTO) 0.2 % (0.0-5.0); HEMATOCRIT 26.8 % (36-48); LYMPHOCYTES % (AUTO) 4.1 % (21.0-51.0); MEAN CORPUSCULAR HGB CONC 32.1 g/dL (32.0-36.0); MEAN CORPUSCULAR VOLUME 84.3 fL (79-99); MONOCYTES % (AUTO) 3.6 % (3.0-13.0); NEUTROPHILS % (AUTO) 84.8 % (40.0-77.0); NUCLEATED RED BLOOD CELLS 0.4 % (0.0-0.19); PLATELET COUNT (AUTO) 164 K/uL (130-400); RED BLOOD CELL COUNT(AUTO) 3.18 MIL/uL (4.00-5.50); RED CELL DISTRIBUTION WIDTH 16.2 % (11.0-15.5); WHITE BLOOD COUNT (AUTO) 17.1 K/uL (4.8-10.8)
[2020-04-14 08:59] LABS: ALBUMIN 2.3 g/dL (3.5-5.0); BILIRUBIN,TOTAL 0.9 mg/dL (0.2-1.0); CREATININE 1.4 mg/dL (0.5-1.5); MAGNESIUM 2.2 mg/dL (1.80-2.40); PHOSPHORUS 2.6 mg/dL (2.5-4.9); POTASSIUM 3.5 mmol/L (3.5-5.1); TOTAL PROTEIN, SERUM 5.1 g/dL (6.0-8.3)
[2020-04-14] MEDS: AMLODIPINE BESYLATE 5 MG TAB PO SCH (09:00)
[2020-04-14] MEDS: METHYLPREDNISOLONE SOD SUCC 40MG/ML 1ML IVP SCH (09:29)
[2020-04-14] MEDS: DOXYCYCLINE 100MG+NS 250ML 250 ML IV SCH (09:30)
[2020-04-14] MEDS: FAMOTIDINE 20MG TAB 20 MG TAB PO SCH (09:30)
[2020-04-14] MEDS: ASCORBIC ACID 500 MG TAB PO SCH (09:31)
[2020-04-14] MEDS: ZINC SULFATE 220 CAPSULE PO SCH (09:31)
[2020-04-14] MEDS: ENOXAPARIN SODIUM 100 MG/1 ML SQ SCH (09:32)
[2020-04-14] MEDS: FUROSEMIDE 10 MG/ML 4ML VIAL IV SCH (11:45)
--- NOTE | 2020-04-14 15:26 | NUR ---
RD FOLLOW UP Notification for Tube Feeding Eval received. Pt pending NGT placement. Recommend Continuous Vital AF 1.2 initiated at 15mls/hr to goal of 35mls/hr. Recommend flushes at 160 Q6hrs. Recommendations Faxed to [facility], Ext [phone]. Attempt to reach RN at 1248, Routed to 1236, No answer x 2. RD to continue to monitor.
[2020-04-14] MEDS ORDERED: FENTANYL CITRATE PF 0.05 MG/ML 1,000 MCG in SODIUM CHLORIDE 0.9% 100 ML PRN (16:30)
[2020-04-14] MEDS ORDERED: FENTANYL 2500MCG+NS 250ML 250 ML IV SCH (16:30)
[2020-04-14] MEDS ORDERED: HYDROMORPHONE HCL 2 MG/ML VIAL IVP PRN (17:00)
[2020-04-14] MEDS ORDERED: LORAZEPAM 2 MG/ML 1 ML VIAL IVP PRN (17:00)
--- NOTE | 2020-04-14 17:41 | NUR ---
WITHDRAW CARE AT 1545 THIS NURSE SPOKE W/DAUGHTER KAROL CORONA ABOUT MOTHERS CONDITION. THIS NURSE EXPLAINED TO DAUGHTER ABOUT FUTURE PROCEDURES NEEDED TO CONTINUE AGGRESSIVE TREATMENT FOR PATIENT. DAUGHTER REQUESTED FOR CARE TO BE WITHDRAWN. THIS NURSE EDUCATED DAUGHTER ON PROCESS OF WITHDRAW. DAUGHTER VERBALIZED UNDERSTANDING AND WISHED TO WITHDRAW CARE ON PATIENT. DR. GREENE NOTIFIED AND RT NOTIFIED. RT AT BEDSIDE TO EXTUBATE PATIENT AT 1708. WILL CONT TO MONITOR.
== END 2020-04-14 17:58 | disposition expired | DRG 871 ==
LOC: EDBD 10:08 → EDH 10:08 → MERGE 19:15 → EDHIP 19:15 → 2CH 04-01 05:57 → 4DH 04-02 21:32 → 3AH 04-04 20:41 → 2AH 04-07 04:11 → 2CV 04-14 00:59
PROVIDERS: ADMIT Internal Medicine; ATTEND Internal Medicine
PROC: 5A1945Z Respiratory Ventilation, 24-96 Consecutive Hours (ICD-10-PCS; principal; 2020-03-31)
PROC: 0BH17EZ Insertion of Endotracheal Airway into Trachea, Via Natural or Artificial Opening (ICD-10-PCS; 2020-03-31)
DX: A41.9 Sepsis, unspecified organism (principal); U07.1 COVID-19; J96.01 Acute respiratory failure with hypoxia; J96.02 Acute respiratory failure with hypercapnia; R65.21 Severe sepsis with septic shock; J12.89 Other viral pneumonia; E87.2 Acidosis; J44.0 Chronic obstructive pulmonary disease with (acute) lower respiratory infection; G93.40 Encephalopathy, unspecified; N17.9 Acute kidney failure, unspecified; Z11.59 Encounter for screening for other viral diseases; I11.0 Hypertensive heart disease with heart failure; I50.9 Heart failure, unspecified; Z88.0 Allergy status to penicillin; Z99.81 Dependence on supplemental oxygen
CPT/HCPCS: 31500; 36415; 36600; 71045; 76770; 80048; 80053; 80076; 82435; 82550; 82728; 82803; 82947; 82948; 83036; 83605; 83615; 83735; 83874; 83880; 84100; 84132; 84145; 84295; 84484; 85018; 85025; 85027; 85378; 85610; 85730; 86140; 86850; 86900; 86901; 87040; 87804; 92610; 92950; 93005; 93306; 93356; 93970; 94002; 94660; G0378; J0360; J1650; J1815; J1940; J1956; J2405; J2704; J2920; J3010; J3370; J3490; J7030; J7040; Q0163; U0003